=== PATIENT | male | born 1960 | race Caucasian/White ===

== ENCOUNTER 2017-11-14 00:21 | Inpatient (IN) | END 2017-11-15 16:22 | disposition home or self-care (01) | DRG 151 ==

== ENCOUNTER 2018-11-16 12:13 | Inpatient (IN) | payer OTHER ==
[~2018-11-16] VITALS: Ht 172.9 cm; Wt 72.0 kg
[~2018-11-16 12:13] MED LIST: AMLO-147 PO; ASPI-831 PO; ATOR-2 PO; CLON-379 PO; LEVO-86 PO; LOSA50TA14 PO
[2018-11-16] MEDS ORDERED: SOD CHLORIDE 0.9% 1,000 ML IV STA (12:55)
--- NOTE | 2018-11-16 13:12 | ERD ---
ER Documentation Chief Complaint Chief Complaint BIB RA FOR EVAL OF ALOC SINCE 1 AM TODAY HPI 58-year-old male brought in by ambulance for altered mental status. He is accompanied by his girlfriend at bedside. She states that last night he went to bed at 9 PM and was acting normally at that time. He woke up around 1 AM today and seemed confused and had balance issues. He was walking to the bathroom with an unsteady gait. He then went to sleep again. When he woke up around 7 AM, he was a little better but still unable to speak normally and had an episode of vomiting. He went back to sleep. He refused to come to the hospital despite her insistence. When he woke up again from his sleep prior to arrival, ambulance was called as he was still acting abnormally. Patient does have a history of CAD with last stent placement in April 2018. He has also had multiple strokes in the past. He is very resistant about going to the hospital or to the doctor. He currently does have high-grade blockage in 1 of his coronary arteries but has not had this taking care of. For the past few days he has not been feeling well with some abdominal pain and flank pain. He has had intermittent diaphoresis but no complaints of chest pain or shortness of breath. Patient is stating that he is in pain but is unable to tell me where his pain is. Otherwise he is unable to answer any questions. ROS Unable to obtain as the patient is altered and not answering questions appropriately. Medications Home Meds Reported Medications Levothyroxine Sodium* (Levothyroxine Sodium*) 150 Mcg Tablet, 150 MCG PO BEFORE BREAKFAST, #30 TAB 11/16/18 Ticagrelor* (Brilinta*) 90 Mg Tablet, 90 MG PO Q12, TAB 11/16/18 Amlodipine Besylate* (Amlodipine Besylate*) 10 Mg Tablet, 10 MG PO DAILY, #30 TAB 11/16/18 Atorvastatin* (Atorvastatin*) 80 Mg Tablet, 80 MG PO HS, TAB 07/05/15 Discontinued Scripts Aspirin (Aspirin) 81 Mg Chew, 81 MG PO DAILY, #30 TAB Prov:MALCOLM LIND 11/15/17 Amlodipine Besylate* (Amlodipine Besylate*) 10 Mg Tablet, 10 MG PO HS, #30 TAB Prov:MALCOLM LIND 11/15/17 Levothyroxine Sodium* (Synthroid*) 100 Mcg Tablet, 100 MCG PO BEFORE BREAKFAST, #30 TAB Prov:MALCOLM LIND 11/15/17 Losartan Potassium* (Losartan Potassium*) 50 Mg Tablet, 50 MG PO DAILY, #30 TAB Prov:MALCOLM LIND 11/15/17 Clonidine Hcl* (Clonidine Hcl*) 0.1 Mg Tab, 0.1 MG PO Q4 PRN for ELEVATED BLOOD PRESSURE, #30 TAB for systolic blood pressure greater than 160 Prov:MALCOLM LIND 11/15/17 Allergies Allergies: Coded Allergies: No Known Allergy (Verified , 11/16/18) PMhx/Soc History of Surgery: Yes Anesthesia Reaction: No Hx Neurological Disorder: Yes (Multiple CVAs) Hx Respiratory Disorders: No Hx Cardiac Disorders: Yes (CAD, hypertension) Hx Psychiatric Problems: No Hx Miscellaneous Medical Probl: Yes (Hypothyroidism) Hx Alcohol Use: No Hx Substance Use: No Hx Tobacco Use: No Smoking Status: Current every day smoker FmHx Unable to obtain Physical Exam Vitals Vital Signs Date Temp Pulse Resp B/P (MAP) Pulse Ox O2 O2 Flow FiO2 Time Delivery Rate 11/16/18 99.0 88 18 138/81 98 Room Air 14:36 (100) 11/16/18 99.4 95 17 138/89 99 Room Air 13:26 (105) 11/16/18 99.4 112 17 142/101 99 12:30 (115) Physical Exam INITIAL VITAL SIGNS: Reviewed by me GENERAL: Patient is lying on [place] HEAD: Normocephalic EYES: EOMI. PERRL. No icterus. No pallor. Lids, lashes, and conjunctiva clear. ENT: Mucous membranes dry, no erythema or tonsillar exudates. Airway patent. NECK: Supple. No masses. Full range of motion. No meningismus. No lymphadenopathy RESPIRATORY: Clear to auscultation bilaterally. No wheezing, No rales, No rhonc hi. No accessory muscle use. No retractions. CV: Regular rate and rhythm. No murmurs, No rubs or gallops. ABDOMEN: Soft, non-distended, non-tender. No guarding. No rebound. No pulsatile mass. Bowel sounds normal. BACK: Non-tender. EXTREMITIES: No edema. No clubbing or cyanosis. Pulses symmetric. No deficits or delays. Calves non-tender. No cords. SKIN: Warm and dry. Decreased turgor. No obvious rash, petechiae or purpura. NEUROLOGIC: Awake and alert. No obvious facial asymmetry. Abnormal speech content. Follows some commands. Moves all extremities equally. Strength possibly slightly diminished in RUE. No focal deficits. Result Diagram: 11/17/18 0437 11/17/18 0441 Results 24 hrs Laboratory Tests Test 11/16/18 13:30 11/16/18 13:32 POC Venous Lactate 1.8 mmol/L White Blood Count 16.8 10^3/ul Red Blood Count 5.03 10^6/ul Hemoglobin 15.2 g/dl Hematocrit 45.2 % Mean Corpuscular Volume 89.9 fl Mean Corpuscular Hemoglobin 30.2 pg Mean Corpuscular Hemoglobin Concent 33.6 g/dl Red Cell Distribution Width 12.9 % Platelet Count 341 10^3/UL Mean Platelet Volume 9.2 fl Immature Granulocytes % 0.700 % Neutrophils % 76.1 % Lymphocytes % 14.6 % Monocytes % 7.4 % Eosinophils % 0.8 % Basophils % 0.4 % Nucleated Red Blood Cells % 0.0 /100WBC Immature Granulocytes # 0.110 10^3/ul Neutrophils # 12.8 10^3/ul Lymphocytes # 2.5 10^3/ul Monocytes # 1.3 10^3/ul Eosinophils # 0.1 10^3/ul Basophils # 0.1 10^3/ul Nucleated Red Blood Cells # 0.0 10^3/ul Erythrocyte Sedimentation Rate 109 mm/Hr Prothrombin Time 12.4 Sec Prothrombin Time Ratio 1.0 INR International Normalized Ratio 0.91 Activated Partial Thromboplast Time 24.5 Sec Sodium Level 141 mmol/L Potassium Level 3.5 mmol/L Chloride Level 102 mmol/L Carbon Dioxide Level 29 mmol/L Anion Gap 10 Blood Urea Nitrogen 12 mg/dl Creatinine 1.11 mg/dl Est Glomerular Filtrat Rate mL/min > 60 mL/min Glucose Level 119 mg/dl Hemoglobin A1c 5.5 % Calcium Level 9.7 mg/dl Total Bilirubin 0.6 mg/dl Direct Bilirubin 0.00 mg/dl Indirect Bilirubin 0.6 mg/dl Aspartate Amino Transf (AST/SGOT) 29 IU/L Alanine Aminotransferase (ALT/SGPT) 12 IU/L Alkaline Phosphatase 79 IU/L Creatine Kinase 42 IU/L Creatine Kinase Index 0.5 Creatinine Kinase MB (Mass) < 0.22 ng/ml Troponin I 0.022 ng/ml Total Protein 8.2 g/dl Albumin 4.0 g/dl Globulin 4.20 g/dl Albumin/Globulin Ratio 0.95 Triglycerides Level 143 mg/dl Cholesterol Level 197 mg/dl LDL Cholesterol, Calculated 129 mg/dl HDL Cholesterol 39 mg/dl Cholesterol/HDL Ratio 5.0 RATIO Free Thyroxine 1.64 ng/dl Ethyl Alcohol Level < 10.0 mg/dl Current Medications Medications Dose Sig/D[place]ton Start Time Status Last (Trade) Ordered Route PRN Stop Time Admin Dose Reason Admin Sodium 1,000 ml @ Q1H STAT 11/16/18 DC 11/16/18 Chloride 1,000 mls/hr IV 12:55 13:33 11/16/18 13:54 IV Flush 10 ml STK-MED 11/16/18 DC (NS 10 ml) ONCE .ROUTE 13:51 11/16/18 13:52 Sodium 100 ml @ ud STK-MED 11/16/18 DC Chloride ONCE .ROUTE 13:51 11/16/18 13:52 Iodixanol 100 ml STK-MED 11/16/18 DC (Visipaque ONCE .ROUTE 13:51 Locm) 11/16/18 13:52 IV Flush 3 ml PER 11/16/18 (NS 3 ml) PROTOCOL IV 14:30 Ondansetron 4 mg Q6H PRN 11/16/18 HCl (Zofran IV 14:30 Inj) NAUSEA/VOMITI NG 650 mg Q6H PRN 11/16/18 11/16/18 Acetaminophen PO .PAIN 1-3 14:30 16:33 (Tylenol OR TEMP Tab) 1 tab Q6H PRN 11/16/18 Acetaminophen PO .MOD PAIN 14:30 / 4-6 Hydrocodone Bitart ([place] (5/325)) Morphine 2 mg Q4H PRN 11/16/18 11/17/18 Sulfate IV .SEVERE 14:30 02:56 (morphine) PAIN 7-10 Docusate 100 mg Q12H PRN 11/16/18 Sodium PO 14:30 (Colace) .CONSTIPATION Magnesium 30 ml DAILY PRN 11/16/18 Hydroxide PO 14:30 (Milk Of Mag) .CONSTIPATION Sodium 1,000 ml @ [id number] IV 11/16/18 11/17/18 Chloride 75 mls/hr 14:25 01:54 Lorazepam 0.5 mg Q6H PRN 11/16/18 DC 11/16/18 (Ativan) IV ANXIETY 14:30 23:45 11/17/18 01:00 Albuterol/ 3 ml Q4H RESP 11/16/18 Ipratropium THERAPY PRN 14:30 (Duoneb) HHN SHORTNESS OF BREATH Hydralazine 10 mg Q6H PRN 11/16/18 HCl IV ELEVATED 14:30 (Apresoline) BLOOD PRESSURE 1 tab Q5M PRN 11/16/18 Nitroglycerin SL ANGINA 14:30 (Nitroglyceri n (Sl Tab) 0.4 Mg) Procedures/MDM EMERGENT LABS AND DIAGNOSTIC STUDIES: Lab Results above were reviewed and interpreted by me. CBC: Leukocytosis, concerning for possible infection CMP: No evidence of electrolyte abnormality, renal failure, hypoglycemia, liver failure, or biliary obstruction Troponin within normal limits, not indicative of cardiac ischemia Lactate within normal limits without evidence of sepsis or tissue hypoperfusion UA:pending ETOH negative UDS pending 12-lead EKG was interpreted by Chelsey Nation MD: Normal sinus rhythm at 100 bpm Normal axis Normal intervals T wave flattening in the inferior and lateral leads. No acute ST or T wave changes suggestive of acute ischemia or STEMI. Radiology Results as interpreted by Radiology below were reviewed by Sedrick Nation MD: Chest x-ray: no acute abnormalities CT Brain: IMPRESSION: 1. New area of low attenuation with loss of strange-white matter differentiation left posterior parietal lobe consistent with an acute area of infarction. Consider further evaluation with MRI.. 2. Old right occipital infarct with encephalomalacia. 3. No intracranial hemorrhage. 4. Moderate small vessel ischemic change in periventricular white matter and zaragoza radiata. 5. Dolichoectasia left vertebral artery CTA Brain/Neck: IMPRESSION: 1. Abrupt cutoff for termination of the left distal M2 and M3 segment of the left middle cerebral artery compatible with acute infarct. 2. Right distal common carotid artery and internal carotid artery origin soft atherosclerotic plaque with approximately 35% stenosis of the right internal carotid artery origin over a 2.2 cm length. 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 Mild interval irregularity of the left distal vertebral artery with dilatation extending into the basilar artery and correlate with fibroid minimal muscular dysplasia. 4. No evidence for focal aneurysms or arterial venous malformation 5. Acute left temporal and parietal lobe ischemic infarct without evidence for a bnormal enhancement 6. Chronic right occipital lobe infarct. Initial Nursing notes reviewed. Previous Medical Records requested via the Electronic Health Record. EMERGENCY DEPARTMENT COURSE / MEDICAL DECISION MAKING: PROCEDURES: none LAB INTERPRETATION: Only notable for leukocytosis MEDICAL DECISION MAKING: Patient presented initially with altered mental status and no slurred speech but had difficulty expressing what he was feeling. He was following commands on my exam initially. He was noted to be a little tachycardic and tachypneic. There is no history of possible source of infection. After my evaluation, multiple s tudies were ordered, including a CT head. I received a call from the radiologist stating that the patient recently had an acute left-sided infarct, likely involving Broca's area, which is probably why he has expressive aphasia. At this time, code stroke was activated. CTA was ordered. I spoke with the tele-neurologist on-call, , who states that since the patient's last known well was 9 PM last night and he has evidence of stroke changes on CT already, he does not meet criteria for TPA or endovascular intervention. She recommended admission for further stroke workup and MRI of the brain. Patient was maintaining his airway with no signs of impending respiratory failure while in the ED awaiting admission. Neuro Critical Care: Time: 60 minutes Treatments/Evaluations: Continuous neurologic and cardiovascular monitoring for deterioration of neurologic function and complications, while obtaining immediate neurologic imaging. Considerations made for TPA and invasive therapy with discussions with family. TPA Criteria Assessment: Patient is not a TPA candidate because: Last known normal > [address] shows > 1/3 MCA territory involvement Accepting Care Team: Current data and ongoing care discussed. Time: Time of admission Primary Provider: [XOXOXO] Consulting: [XOXOXO] Outstanding Data: none Departure Diagnosis: Primary Impression: Left middle cerebral artery stroke Additional Impression: Acute encephalopathy Condition: Critical GREGORY NATION MD Nov 16, 2018 13:12
[2018-11-16] MEDS ORDERED: AMLO-147 PO (13:28)
[2018-11-16] MEDS ORDERED: TICA90TA PO (13:29)
[2018-11-16] MEDS ORDERED: LEVO150T7 PO (13:29)
[2018-11-16] MEDS ORDERED: IODIXANOL LOCM 100 ML BTL ONE (13:51)
[2018-11-16] MEDS ORDERED: SOD CHLORIDE 0.9% 100 ML ONE (13:51)
[2018-11-16] MEDS: SOD CHLORIDE 0.45% 1,000 ML IV SCH (14:25)
[2018-11-16] MEDS ORDERED: NITROGLYCERIN (SL) 0.4 MG TAB SL PRN (14:30)
[2018-11-16] MEDS ORDERED: ONDANSETRON 4 MG INJ IV PRN (14:30)
[2018-11-16] MEDS ORDERED: NACL 0.9% 3 ML SYG IV SCH (14:30)
[2018-11-16] MEDS ORDERED: ALBUTEROL/IPRATROPIUM (NEB) 3 ML AMP HHN PRN (14:30)
[2018-11-16] MEDS ORDERED: ACETAMINOPHEN 325 MG TAB PO PRN (14:30)
[2018-11-16] MEDS ORDERED: DOCUSATE SODIUM 100 MG CAP PO PRN (14:30)
[2018-11-16] MEDS ORDERED: hydrALAzine 20 MG INJ IV PRN (14:30)
[2018-11-16] MEDS ORDERED: MAGNESIUM HYDROXIDE 30ML CUP PO PRN (14:30)
[2018-11-16] MEDS ORDERED: HYDROCODONE/APAP (5/325) TAB PO PRN (14:30)
--- NOTE | 2018-11-16 14:43 | CONS ---
Assessment/Plan Assessment/Plan Hospital Course A: 58 yo M with hx of CVA, HTN, CAD and other comorbidities who presents for evaluation of ams, slurred speech, gait instability. CTH was notable for an acute L posterior parietal infarct. CTA H/N is most notable for an acute L temporoparietal infarct as well as occlusion of the M2/M3 branches of the L MCA P: Await MRI brain for further characterization Await echo, CUS, UA, UDS Add ESR, RPR Agree with ASA/Lipitor for secondary stroke prevention Permissive HTN (up to 220/110) through tomorrow PT/OT/ST as necessary Cont medical management per primary Will follow clinically Consultation Date/Type/Reason Admit Date/Time Type of Consult Neurology Reason for Consultation acute cva Requesting Provider: ALEX HA Date/Time of Note DATE: 11/16/18 TIME: 14:43 Hx of Present Illness 58 yo M with hx of CVA, HTN, CAD and other comorbidities who presented to the ED for evaluation of ams, slurred speech and gait instability. History was obtained from girlfriend at bedside and chart review as pt refused to participate. It is elsewhere noted: HPI 58-year-old male brought in by ambulance for altered mental status. He is accom panied by his girlfriend at bedside. She states that last night he went to bed at 9 PM and was acting normally at that time. He woke up around 1 AM today and seemed confused and had balance issues. He was walking to the bathroom with an unsteady gait. He then went to sleep again. When he woke up around 7 AM, he was a little better but still unable to speak normally and had an episode of vomiting. He went back to sleep. He refused to come to the hospital despite her insistence. When he woke up again from his sleep prior to arrival, ambulance was called as he was still acting abnormally. Patient does have a history of CAD with last stent placement in April 2018. He has also had multi ple strokes in the past. He is very resistant about going to the hospital or to the doctor. He currently does have high-grade blockage in 1 of his coronary arteries but has not had this taking care of. For the past few days he has not been feeling well with some abdominal pain and flank pain. He has had intermittent diaphoresis but no complaints of chest pain or shortness of breath. Patient is stating that he is in pain but is unable to tell me where his pain is. Otherwise he is unable to answer any questions. unable to obtain at this time. Subjective hx not possible: other (pt unwilling to contribute at this time) Exam/Review of Systems Exam Vitals Vital Signs Date Temp Pulse Resp B/P (MAP) Pulse Ox O2 O2 Flow FiO2 Time Delivery Rate 11/16/18 99.0 88 18 138/81 98 Room Air 14:36 (100) Exam PE: Gen Appearance: agitated HEENT: Normocephalic Cardiovascular: Regular rate Lungs: Clear bilaterally Abdomen: Soft Extremities: Dry NE: (The pt was agitated and uncooperative with most aspects of the exam. Will fully reassess when able.) The patient was alert. Speech slightly dysarthric. Comprehension impaired. Very difficult to direct/redirect. Fund of knowledge was unable to be assessed. Did not follow commands. Cranial nerve examination was limited by mental status. Pupils were equal and reactive to light. There was no afferent pupillary defect. Funduscopic examination was limited. Face was grossly symmetric, w/ present corneal and cough reflexes. Tone was normal. Muscle bulk was normal. I did not see fasciculations. The pt had spontaneous movement of all extremities. Coordination and gait testing was limited by mental status. Arm and leg reflexes were within normal limits and symmetric. Dhillon's sign was absent. Plantar responses were flexor. Results Result Diagram: 11/16/18 1332 11/16/18 1332 Results 24hrs Laboratory Tests Test 11/16/18 13:30 11/16/18 13:32 POC Venous Lactate 1.8 White Blood Count 16.8 #H Red Blood Count 5.03 Hemoglobin 15.2 Hematocrit 45.2 Mean Corpuscular Volume 89.9 Mean Corpuscular Hemoglobin 30.2 Mean Corpuscular Hemoglobin Concent 33.6 Red Cell Distribution Width 12.9 Platelet Count 341 # Mean Platelet Volume 9.2 Immature Granulocytes % 0.700 H Neutrophils % 76.1 Lymphocytes % 14.6 L Monocytes % 7.4 Eosinophils % 0.8 Basophils % 0.4 Nucleated Red Blood Cells % 0.0 Immature Granulocytes # 0.110 H Neutrophils # 12.8 H Lymphocytes # 2.5 Monocytes # 1.3 H Eosinophils # 0.1 Basophils # 0.1 Nucleated Red Blood Cells # 0.0 Prothrombin Time 12.4 Prothrombin Time Ratio 1.0 INR International Normalized Ratio 0.91 Activated Partial Thromboplast Time 24.5 Sodium Level 141 Potassium Level 3.5 Chloride Level 102 Carbon Dioxide Level 29 Anion Gap 10 Blood Urea Nitrogen 12 Creatinine 1.11 Est Glomerular Filtrat Rate mL/min > 60 Glucose Level 119 Hemoglobin A1c 5.5 Calcium Level 9.7 Total Bilirubin 0.6 Direct Bilirubin 0.00 Indirect Bilirubin 0.6 Aspartate Amino Transf (AST/SGOT) 29 Alanine Aminotransferase (ALT/SGPT) 12 L Alkaline Phosphatase 79 Creatine Kinase 42 Creatine Kinase Index 0.5 Creatinine Kinase MB (Mass) < 0.22 Troponin I 0.022 Total Protein 8.2 H Albumin 4.0 Globulin 4.20 H Albumin/Globulin Ratio 0.95 Triglycerides Level 143 Cholesterol Level 197 LDL Cholesterol, Calculated 129 HDL Cholesterol 39 Cholesterol/HDL Ratio 5.0 Ethyl Alcohol Level < 10.0 H Medications Medication Current Medications IV Flush (NS 3 ml) 3 ml PER PROTOCOL IV ; Start 11/16/18 at 14:30; Status UNV Ondansetron HCl (Zofran Inj) 4 mg Q6H PRN IV NAUSEA/VOMITING; Start 11/16/18 at 14:30; Status UNV Acetaminophen (Tylenol Tab) 650 mg Q6H PRN PO .PAIN 1-3 OR TEMP; Start 11/16/18 at 14:30; Status UNV Acetaminophen/ Hydrocodone Bitart ([place] (5/325)) 1 tab Q6H PRN PO .MOD PAIN 4- 6; Start 11/16/18 at 14:30; Status UNV Morphine Sulfate (morphine) 2 mg Q4H PRN IV .SEVERE PAIN 7-10; Start 11/16/18 at 14:30; Status UNV Docusate Sodium (Colace) 100 mg Q12H PRN PO .CONSTIPATION; Start 11/16/18 at 14:30; Status UNV Magnesium Hydroxide (Milk Of Mag) 30 ml DAILY PRN PO .CONSTIPATION; Start 11/16/18 at 14:30; Status UNV Pantoprazole (Protonix Tab) 40 mg DAILY@06 PO ; Start 11/17/18 at 06:00; Status UNV Sodium Chloride 1,000 ml @ 75 mls/hr [id number] IV ; Start 11/16/18 at 14:25; Status UNV Lorazepam (Ativan) 0.5 mg Q6H PRN IV ANXIETY; Start 11/16/18 at 14:30; Status UNV Albuterol/ Ipratropium (Duoneb) 3 ml Q4H RESP THERAPY PRN HHN SHORTNESS OF BREATH; Start 11/16/18 at 14:30; Status UNV Hydralazine HCl (Apresoline) 10 mg Q6H PRN IV ELEVATED BLOOD PRESSURE; Start 11/16/18 at 14:30; Status UNV Nitroglycerin (Nitroglycerin (Sl Tab) 0.4 Mg) 1 tab Q5M PRN SL ANGINA; Start 11/16/18 at 14:30; Status UNV Aspirin (Ecotrin) 325 mg DAILY PO ; Start 11/17/18 at 09:00; Status UNV Atorvastatin Calcium (Lipitor) 80 mg HS PO ; Start 11/16/18 at 21:00; Status UNV Levothyroxine Sodium (Synthroid) 150 mcg BEFORE BREAKFAST PO ; Start 11/17/18 at 07:00; Status UNV Ticagrelor (Brilinta) 90 mg Q12 PO ; Start 11/16/18 at 21:00; Status UNV Past Medical History reviewed Home Meds Reported Medications Levothyroxine Sodium* (Levothyroxine Sodium*) 150 Mcg Tablet, 150 MCG PO BEFORE BREAKFAST, #30 TAB 11/16/18 Ticagrelor* (Brilinta*) 90 Mg Tablet, 90 MG PO Q12, TAB 11/16/18 Amlodipine Besylate* (Amlodipine Besylate*) 10 Mg Tablet, 10 MG PO DAILY, #30 TAB 11/16/18 Atorvastatin* (Atorvastatin*) 80 Mg Tablet, 80 MG PO HS, TAB 07/05/15 Discontinued Scripts Aspirin (Aspirin) 81 Mg Chew, 81 MG PO DAILY, #30 TAB Prov:REGMALCOLM PARHAM 11/15/17 Amlodipine Besylate* (Amlodipine Besylate*) 10 Mg Tablet, 10 MG PO HS, #30 TAB Prov:REGIDORMALCOLM 11/15/17 Levothyroxine Sodium* (Synthroid*) 100 Mcg Tablet, 100 MCG PO BEFORE BREAKFAST, #30 TAB Prov:REGIDOMALCOLM John 11/15/17 Losartan Potassium* (Losartan Potassium*) 50 Mg Tablet, 50 MG PO DAILY, #30 TAB Prov:MALCOLM LIND 11/15/17 Clonidine Hcl* (Clonidine Hcl*) 0.1 Mg Tab, 0.1 MG PO Q4 PRN for ELEVATED BLOOD PRESSURE, #30 TAB for systolic blood pressure greater than 160 Prov:MALCOLM LIND 11/15/17 Medications Current Medications IV Flush (NS 3 ml) 3 ml PER PROTOCOL IV ; Start 11/16/18 at 14:30; Status UNV Ondansetron HCl (Zofran Inj) 4 mg Q6H PRN IV NAUSEA/VOMITING; Start 11/16/18 at 14:30; Status UNV Acetaminophen (Tylenol Tab) 650 mg Q6H PRN PO .PAIN 1-3 OR TEMP; Start 11/16/18 at 14:30; Status UNV Acetaminophen/ Hydrocodone Bitart ([place] (5/325)) 1 tab Q6H PRN PO .MOD PAIN 4- 6; Start 11/16/18 at 14:30; Status UNV Morphine Sulfate (morphine) 2 mg Q4H PRN IV .SEVERE PAIN 7-10; Start 11/16/18 at 14:30; Status UNV Docusate Sodium (Colace) 100 mg Q12H PRN PO .CONSTIPATION; Start 11/16/18 at 14:30; Status UNV Magnesium Hydroxide (Milk Of Mag) 30 ml DAILY PRN PO .CONSTIPATION; Start 11/16/18 at 14:30; Status UNV Pantoprazole (Protonix Tab) 40 mg DAILY@06 PO ; Start 11/17/18 at 06:00; Status UNV Sodium Chloride 1,000 ml @ 75 mls/hr [id number] IV ; Start 11/16/18 at 14:25; Status UNV Lorazepam (Ativan) 0.5 mg Q6H PRN IV ANXIETY; Start 11/16/18 at 14:30; Status UNV Albuterol/ Ipratropium (Duoneb) 3 ml Q4H RESP THERAPY PRN HHN SHORTNESS OF BREATH; Start 11/16/18 at 14:30; Status UNV Hydralazine HCl (Apresoline) 10 mg Q6H PRN IV ELEVATED BLOOD PRESSURE; Start 11/16/18 at 14:30; Status UNV Nitroglycerin (Nitroglycerin (Sl Tab) 0.4 Mg) 1 tab Q5M PRN SL ANGINA; Start 11/16/18 at 14:30; Status UNV Aspirin (Ecotrin) 325 mg DAILY PO ; Start 11/17/18 at 09:00; Status UNV Atorvastatin Calcium (Lipitor) 80 mg HS PO ; Start 11/16/18 at 21:00; Status UNV Levothyroxine Sodium (Synthroid) 150 mcg BEFORE BREAKFAST PO ; Start 11/17/18 at 07:00; Status UNV Ticagrelor (Brilinta) 90 mg Q12 PO ; Start 11/16/18 at 21:00; Status UNV Allergies: Coded Allergies: No Known Allergy (Verified , 11/16/18) Past Surgical History reviewed Social History reviewed Smoking Status: Current every day smoker VETO KARIMI NP Nov 16, 2018 14:43
[2018-11-16] MEDS: LORAZEPAM 2 MG INJ IV PRN ×2 (16:50→23:45)
--- NOTE | 2018-11-16 16:57 | HP ---
DATE OF ADMISSION: 11/16/2018 CHIEF COMPLAINT: Altered level of consciousness since early this morning and difficulty speaking. HISTORY OF PRESENT ILLNESS: A 58-year-old male with past medical history based on records of [place] in 2 009 with total of 7 cardiac stents, prior stroke, high cholesterol, hypertension, likely extensive sm oking history, who was brought in for altered mental status. Most of the information is obtained fro m ER documentation and speaking with the patient's girlfriend as the patient is presently at MRI, get ting a head scan. Apparently, the patient went to bed around 9:00 p.m. last night. Per significant other, had mild confusion, but allows acting normally. Apparently, he woke up around 1:00 a.m. and s eemed more confused and had some difficulty walking. He went back to sleep and woke up again around 7:00 a.m. and continued to have some confusion and also difficulty speaking at this time. He had an episode of vomiting as well. He had some mild shortness of breath, but no chest pain. No fevers or chills. No upper or lower GI bleeding. No diarrhea or constipation. No nausea. Significant other convince the patient to come to the ER. Today when he came in, he had a head CT performed that showe d new area of low attenuation with loss of strange white matter differentiation in the left posterior pa rietal lobe consistent with acute area of infarction. Also, there was an old right occipital infarct with encephalomalacia found. The patient underwent CTA of the head and neck that shows abrupt cutof f for termination of left distal M2 and M3 segment of the left middle cerebral artery compatible with acute infarct. There is also acute left temporal and parietal lobe ischemic infarcts. No evidence of abnormal enhancement, however. No evidence of any aneurysms or AV malformations. This was a righ t common carotid artery and internal carotid artery origin, atherosclerotic plaque, 35% stenosis righ t internal carotid artery. 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 A call was been made out from the neurology team, who is coming to evaluate the patient now, and code s troke was initiated as well in the ER, but the patient appeared to be outside of the tPA window. Of note, per records, the patient apparently had his last cardiac stent placement in 04/2018. Also, has had multiple strokes in the past and apparently has currently does have high grade I blockage of one of his coronary arteries, but has not had this taken care of apparently. PAST MEDICAL HISTORY: As above. ALLERGIES: NO KNOWN DRUG ALLERGIES. HOME MEDICATIONS: Brilinta 90 mg q.12 hours, amlodipine 10 mg daily, atorvastatin 80 mg at bedtime, levothyroxine 150 mcg every morning. PAST SURGICAL HISTORY: Again, 7 cardiac stents placed in the past. FAMILY HISTORY: His father had heart problems, unclear specifically, and his mother may have had a h eart attack in the past, but is unclear. SOCIAL HISTORY: The patient's significant other denied any smoking history; however, looking back at the records, the patient in the past has been noted to have a [id number] smoking history. Denies any IV drug abuse or alcohol use. PHYSICAL EXAMINATION: VITAL SIGNS: Today, T-max 99.4, pulse 80 to 112, respirations 17, blood pressure 138/89, satting at 99% on room air. GENERAL: The patient is lying in the bed, no acute distress. HEENT: Pupils equal, round, react to light. Extraocular muscles intact. NECK: Supple, no thyromegaly. LUNGS: Clear to auscultation bilaterally. CARDIOVASCULAR: S1, S2 heard. No rubs or gallops. ABDOMEN: Soft, nontender, nondistended. Normal bowel sounds. No rebound or guarding. MUSCULOSKELETAL: No lower extremity edema bilaterally. NEUROLOGIC: Moves upper and lower extremities without any difficulty. Speech appears to be more coh erent now. No other focal deficits. LABORATORIES: WBC 16.8. The rest of his CBC is normal. Comprehensive metabolic panel is normal. T roponin is negative x1. Cholesterol panel was normal. TSH is normal. Blood alcohol level shows les s than 10. Coags appear to be normal. We mentioned the imaging study findings of the brain and the neck. There is also a chest x-ray performed that shows no evidence of any acute cardiopulmonary dise ase. ASSESSMENT AND PLAN: A 58-year-old male with history of significant coronary artery disease with 7 c ardiac stents, prior strokes, [place] 2008, high cholesterol, hypertension, likely positive smoking histor y, who comes in with altered mental status and difficulty speaking with signs of acute left posterior parietal and temporoparietal infarcts. 1. Altered mental status and difficulty speaking. Again, likely secondary to a left posterior parie shar infarct and left temporoparietal infarct, both acute, so that the patient allow for permissive hy pertension at this time. Get PT, OT and speech therapy consult. Check TSH, A1c, lipid panel. We wi ll also put him on high dose aspirin and statin. Get echocardiogram, carotid Doppler study and MRI o f the brain for further assessment. Will get a neurology consult. Follow up their recommendations, do neuro checks every 4 hours. 2. History of coronary artery disease with stents. For now, continue his Brilinta. He will be on h igh dose aspirin as well. 3. Possible history of hypothyroidism. Follow up for thyroid panel. Continue Synthroid. 4. History of high cholesterol. Again, he is on Lipitor for the stroke, but also for high cholester ol at home. Continue that for now. 5. Hypertension. Again, allowing for permissive hypertension for at least the first 24 hours, so ot her than hydralazine IV p.r.n., we will hold his other home blood pressure medicines for now. 6. Deep venous thrombosis prophylaxis. Again, he is Brilinta and SCDs. 7. GI prophylaxis. For now, he is on PPI. Dictated By: ALEX NAIK/HAKEEM Conf#: [id number] DID#: [id number] CC: RAMON LARSON; GREGORY SCOTT MD;*End*
--- NOTE | 2018-11-16 18:24 | QN ---
Documentation Comment Teleneurology Telephone Note 58yo M last well 9pm, with left posterior parietal acute CVA on CT, with speech difficulty and ataxia noted at 1am and refused to come to ED. I agreed the patient is not a TPA candidate due to being outside the time window, and not a neurointerventional candidate given changes seen on CT. No further consultation is requested. JAZMIN DENSON Nov 16, 2018 18:22
[2018-11-16] MEDS ORDERED: HALOPERIDOL 5 MG INJ IM ONE (20:30)
[2018-11-16] MEDS: TICAGRELOR 90 MG TABLET PO SCH (21:28)
[2018-11-16] MEDS: ATORVASTATIN 80 MG TAB PO SCH (21:28)
[2018-11-16] MEDS ORDERED: LORAZEPAM 2 MG INJ IV ONE (21:30)
[2018-11-16 22:48] VITALS: PULSE 135
[2018-11-16] MEDS: morphine 2 MG INJ IV PRN (22:48)
[2018-11-16 23:00] VITALS: BP 150/105; PULSE 111; RESP 24
[2018-11-16 23:30] VITALS: Ht 172.9 cm; Wt 72.0 kg
[2018-11-17] VITALS (22 sets, daily range): BP systolic 99–151; BP diastolic 62–106; PULSE 102–127; RESP 12–36
[2018-11-17] MEDS ORDERED: DIPHENHYDRAMINE 50 MG INJ IV ONE ×2 (01:00→01:30)
[2018-11-17] MEDS: SOD CHLORIDE 0.45% 1,000 ML IV SCH ×2 (01:54→18:25)
[2018-11-17] MEDS ORDERED: LORAZEPAM 2 MG INJ IV PRN (02:30)
[2018-11-17] MEDS: morphine 2 MG INJ IV PRN (02:56)
[2018-11-17] MEDS ORDERED: MAGNESIUM SULFATE 2 GM/50 ML 50 ML IVPB ONE (06:00)
[2018-11-17] MEDS: PANTOPRAZOLE (EC) 40 MG TAB PO SCH (06:18)
[2018-11-17] MEDS: POTASSIUM CHLORIDE 100 ML IVPB SCH ×4 (08:30→17:13)
[2018-11-17] MEDS ORDERED: NICOTINE (7 MG/24 HR) PATCH TRANSDERM SCH (09:00)
[2018-11-17] MEDS: ASPIRIN (EC) 325 MG TAB PO SCH (09:19)
[2018-11-17] MEDS: LEVOTHYROXINE 150 MCG TAB PO SCH (09:26)
[2018-11-17] MEDS: NICOTINE (14 MG/24 HR) PATCH TRANSDERM SCH (09:27)
[2018-11-17] MEDS: TICAGRELOR 90 MG TABLET PO SCH ×2 (09:27→21:17)
--- NOTE | 2018-11-17 10:30 | PN ---
Date/Time of Note Date/Time of Note DATE: 11/17/18 TIME: 10:21 Assessment/Plan VTE Prophylaxis SCD applied (from Nsg): Yes Pharmacological prophylaxis: other (Brilinta) Lines/Catheters IV Catheter Type (from Nrs): Saline Lock Assessment/Plan Hospital Course S: Patient seen by neurology team yesterday. Had some agitation overnight which required restraints. Presently more calm, working with occupational therapy presently. Head CT and MRI brain results noted for acute stroke. O: VS-see below PHYSICAL EXAMINATION: GENERAL: Sitting on edge of bed, working with OT, no present acute distress. HEENT: Pupils equal, round, react to light. Extraocular muscles intact. NECK: Supple, no thyromegaly. LUNGS: Clear to auscultation bilaterally. CARDIOVASCULAR: S1, S2 heard. No rubs or gallops. ABDOMEN: Soft, nontender, nondistended. Normal bowel sounds. No rebound or guarding. MUSCULOSKELETAL: No lower extremity edema bilaterally. NEUROLOGIC: Moves upper and lower extremities, but with difficulty speaking MRI brain: IMPRESSION: 1. Acute/recent infarcts involving posterior left parietal lobe and insula and left occipital parietal region as well as a smaller focus in the posterior left frontal lobe. 2. Old right medial occipital lobe infarct with associated hemosiderin. 3. Small old lacunar infarcts are noted in left thalamus and right paramedian maria g. 4. Moderate chronic small vessel ischemic changes. 5. Mild generalized cerebral volume loss. ASSESSMENT AND PLAN: 58-year-old male with history of significant coronary artery disease with 7 cardiac stents, prior strokes, [place] 2008, high cholesterol, hypertension, likely positive smoking history, who comes in with altered mental status and difficulty speaking with signs of acute left posterior parietal and temporoparietal infarcts. 1. Altered mental status and difficulty speaking- secondary to acute infarct. Patient on MRI found with acute/recent infarcts involving posterior left parietal lobe and insula and left occipital parietal region as well as a smaller focus in the posterior left frontal lobe. -Continue PT, OT and speech therapy -Continue high dose aspirin and statin. -Follow-up results of echocardiogram, and recommendations from neurology consult. -Continue neuro checks every 4 hours. -Still allowing for permissive hypertension per neurology recommendations -Replete low electrolytes 2. History of coronary artery disease with stents. - For now, continue his Brilinta,high dose aspirin as well. 3. hypothyroidism. - Follow up for thyroid panel. - Continue Synthroid. 4. History of high cholesterol- - Again, he is on Lipitor for the stroke, but also for high cholesterol at home. 5. Hypertension-stable - Again, allowing for permissive hypertension for at least the first 24 hours, so other than hydralazine IV p.r.n. systolic greater than 220, we will hold his other home blood pressure medicines for now. 6. Deep venous thrombosis prophylaxis. Again, he is Brilinta and SCDs. 7. GI prophylaxis- PPI. Critical care time spent on patient care today equals 45 minutes. Result Diagram: 11/17/18 0437 11/17/18 0441 Results 24hrs Laboratory Tests Test 11/16/18 13:30 11/16/18 13:32 11/16/18 17:16 11/16/18 21:47 POC Venous Lactate 1.8 1.2 White Blood Count 16.8 #H Red Blood Count 5.03 Hemoglobin 15.2 Hematocrit 45.2 Mean Corpuscular 89.9 Volume Mean Corpuscular 30.2 Hemoglobin Mean Corpuscular 33.6 Hemoglobin Concent Red Cell 12.9 Distribution Width Platelet Count 341 # Mean Platelet Volume 9.2 Immature 0.700 H Granulocytes % Neutrophils % 76.1 Lymphocytes % 14.6 L Monocytes % 7.4 Eosinophils % 0.8 Basophils % 0.4 Nucleated Red Blood 0.0 Cells % Immature 0.110 H Granulocytes # Neutrophils # 12.8 H Lymphocytes # 2.5 Monocytes # 1.3 H Eosinophils # 0.1 Basophils # 0.1 Nucleated Red Blood 0.0 Cells # Erythrocyte 109 H Sedimentation Rate Prothrombin Time 12.4 12.7 Prothrombin Time 1.0 1.0 Ratio INR International 0.91 0.94 Normalized Ratio Activated 24.5 33.4 Partial Thromboplast Time Sodium Level 141 Potassium Level 3.5 Chloride Level 102 Carbon Dioxide Level 29 Anion Gap 10 Blood Urea Nitrogen 12 Creatinine 1.11 Est Glomerular > 60 Filtrat Rate mL/min Glucose Level 119 Hemoglobin A1c 5.5 Calcium Level 9.7 Total Bilirubin 0.6 Direct Bilirubin 0.00 Indirect Bilirubin 0.6 Aspartate Amino 29 Transf (AST/SGOT) Alanine 12 L Aminotransferase ([place] T/SGPT) Alkaline Phosphatase 79 Creatine Kinase 42 Creatine Kinase 0.5 Index Creatinine Kinase MB < 0.22 (Mass) Troponin I 0.022 Total Protein 8.2 H Albumin 4.0 Globulin 4.20 H Albumin/Globulin 0.95 Ratio Triglycerides Level 143 Cholesterol Level 197 LDL Cholesterol, 129 Calculated HDL Cholesterol 39 Cholesterol/HDL 5.0 Ratio Free Thyroxine 1.64 Ethyl Alcohol Level < 10.0 H Test 11/16/18 21:51 11/17/18 04:37 11/17/18 04:41 Lactic Acid Level 1.9 White Blood Count 23.1 #H Red Blood Count 4.97 Hemoglobin 14.8 Hematocrit 43.5 Mean Corpuscular 87.5 Volume Mean Corpuscular 29.8 Hemoglobin Mean Corpuscular 34.0 Hemoglobin Concent Red Cell 13.0 Distribution Width Platelet Count 340 Mean Platelet Volume 9.3 Immature 0.700 H Granulocytes % Neutrophils % 78.9 H Lymphocytes % 12.8 L Monocytes % 7.3 Eosinophils % 0.0 Basophils % 0.3 Nucleated Red Blood 0.0 Cells % Immature 0.170 H Granulocytes # Neutrophils # 18.3 H Lymphocytes # 3.0 H Monocytes # 1.7 H Eosinophils # 0.0 Basophils # 0.1 Nucleated Red Blood 0.0 Cells # Sodium Level 140 Potassium Level 2.9 *L Chloride Level 99 Carbon Dioxide Level 30 Anion Gap 11 Blood Urea Nitrogen 13 Creatinine 1.15 Est Glomerular > 60 Filtrat Rate mL/min Glucose Level 137 Hemoglobin A1c 5.6 Calcium Level 9.6 Phosphorus Level 2.1 L Magnesium Level 1.6 L Triglycerides Level 131 Cholesterol Level 186 LDL Cholesterol, 125 Calculated HDL Cholesterol 35 Cholesterol/HDL 5.3 Ratio Thyroid Stimulating 2.140 Hormone (TSH) Exam/Review of Systems Exam Vitals Vital Signs Date Temp Pulse Resp B/P (MAP) Pulse Ox O2 O2 Flow FiO2 Time Delivery Rate 11/17/18 107 36 126/97 94 10:00 (107) 11/17/18 98.6 08:00 11/17/18 21 00:15 11/16/18 Room Air 23:00 11/16/18 2.0 18:00 Intake and Output 11/16/18 11/16/18 11/17/18 1414:59 22:59 06:59 OutputOutput Total 600 ml BalanceBalance -600 ml Results Results 24hrs Laboratory Tests Test 11/16/18 13:30 11/16/18 13:32 11/16/18 17:16 11/16/18 21:47 POC Venous Lactate 1.8 1.2 White Blood Count 16.8 #H Red Blood Count 5.03 Hemoglobin 15.2 Hematocrit 45.2 Mean Corpuscular 89.9 Volume Mean Corpuscular 30.2 Hemoglobin Mean Corpuscular 33.6 Hemoglobin Concent Red Cell 12.9 Distribution Width Platelet Count 341 # Mean Platelet Volume 9.2 Immature 0.700 H Granulocytes % Neutrophils % 76.1 Lymphocytes % 14.6 L Monocytes % 7.4 Eosinophils % 0.8 Basophils % 0.4 Nucleated Red Blood 0.0 Cells % Immature 0.110 H Granulocytes # Neutrophils # 12.8 H Lymphocytes # 2.5 Monocytes # 1.3 H Eosinophils # 0.1 Basophils # 0.1 Nucleated Red Blood 0.0 Cells # Erythrocyte 109 H Sedimentation Rate Prothrombin Time 12.4 12.7 Prothrombin Time 1.0 1.0 Ratio INR International 0.91 0.94 Normalized Ratio Activated 24.5 33.4 Partial Thromboplast Time Sodium Level 141 Potassium Level 3.5 Chloride Level 102 Carbon Dioxide Level 29 Anion Gap 10 Blood Urea Nitrogen 12 Creatinine 1.11 Est Glomerular > 60 Filtrat Rate mL/min Glucose Level 119 Hemoglobin A1c 5.5 Calcium Level 9.7 Total Bilirubin 0.6 Direct Bilirubin 0.00 Indirect Bilirubin 0.6 Aspartate Amino 29 Transf (AST/SGOT) Alanine 12 L Aminotransferase ([place] T/SGPT) Alkaline Phosphatase 79 Creatine Kinase 42 Creatine Kinase 0.5 Index Creatinine Kinase MB < 0.22 (Mass) Troponin I 0.022 Total Protein 8.2 H Albumin 4.0 Globulin 4.20 H Albumin/Globulin 0.95 Ratio Triglycerides Level 143 Cholesterol Level 197 LDL Cholesterol, 129 Calculated HDL Cholesterol 39 Cholesterol/HDL 5.0 Ratio Free Thyroxine 1.64 Ethyl Alcohol Level < 10.0 H Test 11/16/18 21:51 11/17/18 04:37 11/17/18 04:41 Lactic Acid Level 1.9 White Blood Count 23.1 #H Red Blood Count 4.97 Hemoglobin 14.8 Hematocrit 43.5 Mean Corpuscular 87.5 Volume Mean Corpuscular 29.8 Hemoglobin Mean Corpuscular 34.0 Hemoglobin Concent Red Cell 13.0 Distribution Width Platelet Count 340 Mean Platelet Volume 9.3 Immature 0.700 H Granulocytes % Neutrophils % 78.9 H Lymphocytes % 12.8 L Monocytes % 7.3 Eosinophils % 0.0 Basophils % 0.3 Nucleated Red Blood 0.0 Cells % Immature 0.170 H Granulocytes # Neutrophils # 18.3 H Lymphocytes # 3.0 H Monocytes # 1.7 H Eosinophils # 0.0 Basophils # 0.1 Nucleated Red Blood 0.0 Cells # Sodium Level 140 Potassium Level 2.9 *L Chloride Level 99 Carbon Dioxide Level 30 Anion Gap 11 Blood Urea Nitrogen 13 Creatinine 1.15 Est Glomerular > 60 Filtrat Rate mL/min Glucose Level 137 Hemoglobin A1c 5.6 Calcium Level 9.6 Phosphorus Level 2.1 L Magnesium Level 1.6 L Triglycerides Level 131 Cholesterol Level 186 LDL Cholesterol, 125 Calculated HDL Cholesterol 35 Cholesterol/HDL 5.3 Ratio Thyroid Stimulating 2.140 Hormone (TSH) Medications Medication Current Medications IV Flush (NS 3 ml) 3 ml PER PROTOCOL IV ; Start 11/16/18 at 14:30 Ondansetron HCl (Zofran Inj) 4 mg Q6H PRN IV NAUSEA/VOMITING; Start 11/16/18 at 14:30 Acetaminophen (Tylenol Tab) 650 mg Q6H PRN PO .PAIN 1-3 OR TEMP Last administered on 11/16/18at 16:33; Admin Dose 650 MG; Start 11/16/18 at 14:30 Acetaminophen/ Hydrocodone Bitart ([place] (5/325)) 1 tab Q6H PRN PO .MOD PAIN 4- 6; Start 11/16/18 at 14:30 Morphine Sulfate (morphine) 2 mg Q4H PRN IV .SEVERE PAIN 7-10 Last administered on 11/17/18at 02:56; Admin Dose 2 MG; Start 11/16/18 at 14:30 Docusate Sodium (Colace) 100 mg Q12H PRN PO .CONSTIPATION; Start 11/16/18 at 14:30 Magnesium Hydroxide (Milk Of Mag) 30 ml DAILY PRN PO .CONSTIPATION; Start 11/16/18 at 14:30 Pantoprazole (Protonix Tab) 40 mg DAILY@06 PO Last administered on 11/17/18at 06:18; Admin Dose 40 MG; Start 11/17/18 at 06:00 Sodium Chloride 1,000 ml @ 75 mls/hr [id number] IV Last administered on 11/17/18at 01:54; Admin Dose 75 MLS/HR; Start 11/16/18 at 14:25 Albuterol/ Ipratropium (Duoneb) 3 ml Q4H RESP THERAPY PRN HHN SHORTNESS OF BREATH; Start 11/16/18 at 14:30 Hydralazine HCl (Apresoline) 10 mg Q6H PRN IV ELEVATED BLOOD PRESSURE; Start 11/16/18 at 14:30 Nitroglycerin (Nitroglycerin (Sl Tab) 0.4 Mg) 1 tab Q5M PRN SL ANGINA; Start 11/16/18 at 14:30 Aspirin (Ecotrin) 325 mg DAILY PO Last administered on 11/17/18 09:19; Admin Dose 325 MG; Start 11/17/18 at 09:00 Atorvastatin Calcium (Lipitor) 80 mg HS PO Last administered on 11/16/18 21:28; Admin Dose 80 MG; Start 11/16/18 at 21:00 Levothyroxine Sodium (Synthroid) 150 mcg BEFORE BREAKFAST PO Last administered on 11/17/18 09:26; Admin Dose 150 MCG; Start 11/17/18 at 07:00 Ticagrelor (Brilinta) 90 mg Q12 PO Last administered on 11/17/18 09:27; Admin Dose 90 MG; Start 11/16/18 at 21:00 Nicotine (Nicoderm 14 Mg/ 24hr) 1 patch DAILY TRANSDERM Last administered on 11/17/18 09:27; Admin Dose 1 PATCH; Start 11/17/18 at 09:00 Lorazepam (Ativan) 1 mg Q6H PRN IV ANXIETY; Start 11/17/18 at 02:30 Potassium Chloride 100 ml @ 50 mls/hr Q2H IVPB Last administered on 11/17/18 08:30; Admin Dose 50 MLS/HR; Start 11/17/18 at 06:00; Stop 11/17/18 at 13:59 ALEX HA Nov 17, 2018 10:29
--- NOTE | 2018-11-17 13:43 | CONS ---
Assessment/Plan Assessment/Plan Hospital Course A: 58 yo M with hx of CVA, HTN, CAD and other comorbidities who presents for evaluation of ams, slurred speech, gait instability. MRI Brain was most notable for acute infarcts in the L posterior parietal, L occipitoparietal, and posterior L frontal lobe CTA H/N is most notable for an acute L temporoparietal infarct as well as occlusion of the M2/M3 branches of the L MCA CUS was unremarkable P: Await echo Await UA, UDS Cont ASA/Lipitor for secondary stroke prevention Permissive HTN (up to 220/110) through today PT/OT/ST as necessary Cont medical management per primary Will follow clinically Consultation Date/Type/Reason Admit Date/Time Nov 16, 2018 at 14:57 Type of Consult Neurology Reason for Consultation acute cva Requesting Provider: ALEX HA Date/Time of Note DATE: 11/17/18 TIME: 13:43 24 HR Interval Summary Free Text/Dictation Continues critical care. Pt reportedly more cooperative with staff and POC. Receiving PT this am. Pt unable to meaningfully contribute at this time. Exam Vital Signs Vitals Vital Signs Date Temp Pulse Resp B/P (MAP) Pulse Ox O2 O2 Flow FiO2 Time Delivery Rate 11/17/18 114 12:00 11/17/18 36 126/97 94 10:00 (107) 11/17/18 98.6 08:00 11/17/18 21 00:15 11/16/18 Room Air 23:00 11/16/18 2.0 18:00 Intake and Output 11/16/18 11/16/18 11/17/18 1515:00 23:00 07:00 OutputOutput Total 300 ml 300 ml BalanceBalance -300 ml -300 ml Exam PE: Gen Appearance: agitated HEENT: Normocephalic Cardiovascular: Regular rate Lungs: Clear bilaterally Abdomen: Soft Extremities: Dry NE: The patient was awake and alert. Had expressive aphasia. Agnostic. Somewhat difficult to direct/redirect. Fund of knowledge was unable to be assessed. The pt was able to follow simple axial/appendicular commands, though he had some c onfusion with right/left. Pupils were equal and reactive to light. There was no afferent pupillary defect. Visual marcano were normal. Funduscopic examination was limited. Extra-ocular movements were full. Ptosis was absent. There was no nystagmus. Facial sensation was normal. Face was symmetric with normal strength. Hearing was intact. Palate movements were normal. Neck strength was normal. There was normal tongue bulk and speed of movement. Tone was normal. Muscle bulk was normal. I did not see fasciculations. The pt had spontaneous movement of all extremities. Vibration sensation was normal. Temperature and pinprick sensation was normal. Rapid alternating movements were normal. There was no dysmetria. There was no intention tremor. Gait was deferred due to bedrest. Arm and leg reflexes were 2+ and symmetric. Dhillon's sign was absent. Plantar responses were flexor. VETO KARIMI NP Nov 17, 2018 13:43
--- NOTE | 2018-11-17 14:55 | RADRPT ---
Echocardiogram Report Patient Name: KAYLI YUPatient ID: [id number] : 1960 (58y 6m)Study Date: 11/16/2018 2:49:24 PM Gender: MAccession #: [id number] Tech: Charlie Wilkins [facility] Location: [facility] Ref.Physician: ALEX HA Height(Cm): BSA: Weight(Kg): Quality: AdequateAccount #: Procedures: Echocardiographic Report: Transthoracic echocardiogram with complete 2D, M-Mode, and doppler examination. Indications: Cerebrovascular Accident. Measurements: 2D/M Mode Doppler Measurement Value Normal Range Measurement Value Normal Range LVIDd 2D 5.2 [ 4.2 - 5.8 ] cm AV Peak [place] 1.2 [ 100.0 - 170.0 ] cm/sec LVIDs 2D 3.7 [ 2.5 - 4.0 ] cm AV Peak PG 6.0 [ 2.0 - 9.0 ] mmHg LVPWd 2D 1.4 [ 0.6 - 1.0 ] cm LVOT Peak [place] 0.9 [ 70.0 - 110.0 ] cm/sec IVSd 2D 1.4 [ 0.6 - 1.0 ] cm LVOT Peak PG 3.0 [ 2.0 - 6.0 ] mmHg AoR Diam 2D 3.8 [ 2.6 - 3.4 ] cm MV E Peak [place] 0.7 [ 60.0 - 130.0 ] cm/sec EDV 2D 130.0 [ 62.0 - 150.0 ] ml MV A Peak [place] 1.0 [ 100.0 - 120.0 ] cm/sec ESV 2D 57.8 [ 21.0 - 61.0 ] ml MV E/A 0.7 [ 0.8 - 1.5 ] ratio EF 2D 55.5 [ 52.0 - 72.0 ] percent MV Decel Time 130 [ 104 - 258 ] msec LA Dimen 2D 3.4 [ 3.0 - 4.0 ] cm Lat E` [place] 0.1 [ 10.0 - 15.0 ] cm/sec Lateral E/E` 9.7 [ 1.0 - 2.0 ] ratio Med E` [place] 0.1 cm/sec MV E/A 0.7 [ 0.8 - 1.5 ] ratio RA Pressure 3.0 mmHg Findings: Left Ventricle: Normal left ventricular systolic function. Normal left ventricular cavity size. Mild concentric left ventricular hypertrophy. Ejection fraction is visually estimated at 55 %. Tissue Doppler/Mitral Doppler indices are consistent with impaired relaxation (Stage I diastolic dysfunction). Right Ventricle: Normal right ventricular size. Normal right ventricular systolic function. Left Atrium: The left atrium is normal in size. Right Atrium: The right atrium is normal in size. Mitral Valve: Mild mitral leaflet calcification. Mild mitral annular calcification. Trace mitral regurgitation. Aortic Valve: No significant aortic stenosis or insufficiency. Aortic cusps appear mildly calcified. Tricuspid Valve: Normal appearance of the tricuspid valve. Unable to obtain RVSP due to minimal presence of tricuspid regurgitation. Pulmonic Valve: Pulmonic valve not well visualized. There is trace pulmonic regurgitation. Pericardium: Normal pericardium with no significant pericardial effusion. Aorta: Normal aortic root. IVC: Normal size and normal respiratory collapse consistent with normal right atrial pressure. Conclusions: Normal left ventricular systolic function. Normal left ventricular cavity size. Mild concentric left ventricular hypertrophy. Ejection fraction is visually estimated at 55 %. Tissue Doppler/Mitral Doppler indices are consistent with impaired relaxation (Stage I diastolic dysfunction). Normal right ventricular size. Normal right ventricular systolic function. The left atrium is normal in size. The right atrium is normal in size. No significant valvular stenosis or regurgitation seen. Normal pericardium with no significant pericardial effusion. Electronically Signed By: Christofer Ronquillo 2018-11-17 14:54:18 PST
[2018-11-17] MEDS: ATORVASTATIN 80 MG TAB PO SCH (21:03)
[2018-11-18] VITALS (18 sets, daily range): BP systolic 105–154; BP diastolic 81–129; PULSE 88–120; RESP 14–32
[2018-11-18] MEDS: SOD CHLORIDE 0.45% 1,000 ML IV SCH ×2 (06:22→07:00)
[2018-11-18] MEDS ORDERED: HALOPERIDOL 5 MG INJ IM ONE (06:30)
[2018-11-18] MEDS: PANTOPRAZOLE (EC) 40 MG TAB PO SCH (06:32)
[2018-11-18] MEDS: LEVOTHYROXINE 150 MCG TAB PO SCH (06:33)
[2018-11-18] MEDS: ASPIRIN (EC) 325 MG TAB PO SCH (09:00)
[2018-11-18] MEDS: NICOTINE (14 MG/24 HR) PATCH TRANSDERM SCH (10:32)
[2018-11-18] MEDS: TICAGRELOR 90 MG TABLET PO SCH ×2 (10:41→20:33)
--- NOTE | 2018-11-18 10:58 | PN ---
Date/Time of Note Date/Time of Note DATE: 11/18/18 TIME: 10:55 Assessment/Plan VTE Prophylaxis Risk score (from Ns)>0 risk: 2 SCD applied (from Ns): Yes Pharmacological prophylaxis: other Lines/Catheters IV C[facility]ter Type (from [facility]): Peripheral IV Urinary Cath still in place: No Assessment/Plan Hospital Course S: Patient still confused at times, able to speak a bit better since yesterday. Seen by OT and speech therapy and PT teams yesterday and today. O: VS-see below PHYSICAL EXAMINATION: GENERAL: Sitting on edge of bed, family at bedside HEENT: Pupils equal, round, react to light. Extraocular muscles intact. NECK: Supple, no thyromegaly. LUNGS: Clear to auscultation bilaterally. CARDIOVASCULAR: S1, S2 heard. No rubs or gallops. ABDOMEN: Soft, nontender, nondistended. Normal bowel sounds. No rebound or guarding. MUSCULOSKELETAL: No lower extremity edema bilaterally. NEUROLOGIC: Moves upper and lower extremities, but with difficulty speaking MRI brain: IMPRESSION: 1. Acute/recent infarcts involving posterior left parietal lobe and insula and left occipital parietal region as well as a smaller focus in the posterior left frontal lobe. 2. Old right medial occipital lobe infarct with associated hemosiderin. 3. Small old lacunar infarcts are noted in left thalamus and right paramedian maria g. 4. Moderate chronic small vessel ischemic changes. 5. Mild generalized cerebral volume loss. 2D echo: Conclusions: Normal left ventricular systolic function. Normal left ventricular cavity size. Mild concentric left ventricular hypertrophy. Ejection fraction is visually estimated at 55 %. Tissue Doppler/Mitral Doppler indices are consistent with impaired relaxation (Stage I diastolic dysfunction). Normal right ventricular size. Normal right ventricular systolic function. The left atrium is normal in size. The right atrium is normal in size. No significant valvular stenosis or regurgitation seen. Normal pericardium with no significant pericardial effusion. ASSESSMENT AND PLAN: 58-year-old male with history of significant coronary artery disease with 7 cardiac stents, prior strokes, [place] 2008, high cholesterol, hypertension, likely positive smoking history, who comes in with altered mental status and difficulty speaking with signs of acute left posterior parietal and temporoparietal infarcts. 1. Altered mental status and difficulty speaking- secondary to acute infarct. Patient on MRI found with acute/recent infarcts involving posterior left parietal lobe and insula and left occipital parietal region as well as a smaller focus in the posterior left frontal lobe. -Continue PT, OT and speech therapy -also awaiting ARU eval -Continue high dose aspirin and statin. -Follow-up recommendations from neurology consult. -Continue neuro checks every 4 hours. -Replete low electrolytes 2. History of coronary artery disease with stents. - For now, continue his Brilinta,high dose aspirin as well. 3. hypothyroidism-thyroid panel appears stable - Continue Synthroid. 4. History of high cholesterol- - Again, he is on Lipitor for the stroke, but also for high cholesterol at home. 5. Hypertension-stable -Continue current medications, monitor for now 6. Deep venous thrombosis prophylaxis. Again, he is on Brilinta and SCDs. 7. GI prophylaxis- PPI. Critical care time spent on patient care today equals 45 minutes. Result Diagram: 11/18/1839 11/18/1839 Results 24hrs Laboratory Tests Test 11/18/18 05:39 White Blood Count 21.0 H Red Blood Count 5.17 Hemoglobin 15.3 Hematocrit 45.6 Mean Corpuscular Volume 88.2 Mean Corpuscular Hemoglobin 29.6 Mean Corpuscular Hemoglobin Concent 33.6 Red Cell Distribution Width 13.1 Platelet Count 342 Mean Platelet Volume 9.4 Immature Granulocytes % 0.700 H Neutrophils % 78.4 H Lymphocytes % 13.5 L Monocytes % 6.3 Eosinophils % 0.9 Basophils % 0.2 Nucleated Red Blood Cells % 0.0 Immature Granulocytes # 0.140 H Neutrophils # 16.5 H Lymphocytes # 2.8 Monocytes # 1.3 H Eosinophils # 0.2 Basophils # 0.1 Nucleated Red Blood Cells # 0.0 Sodium Level 141 Potassium Level 3.5 Chloride Level 104 Carbon Dioxide Level 24 Anion Gap 13 Blood Urea Nitrogen 24 #H Creatinine 1.46 H Est Glomerular Filtrat Rate mL/min 50 L Glucose Level 105 Calcium Level 9.8 Exam/Review of Systems Exam Vitals Vital Signs Date Temp Pulse Resp B/P (MAP) Pulse Ox O2 O2 Flow FiO2 Time Delivery Rate 11/18/18 112 08:00 11/18/18 98.4 16 111/87 95 Room Air 04:00 (95) 11/17/18 21 00:15 11/16/18 2.0 18:00 Intake and Output 11/17/18 11/17/18 11/18/18 1515:00 23:00 07:00 IntakeIntake Total 120 ml 9303 ml OutputOutput Total 275 ml BalanceBalance -155 ml 9303 ml Results Results 24hrs Laboratory Tests Test 11/18/18 05:39 White Blood Count 21.0 H Red Blood Count 5.17 Hemoglobin 15.3 Hematocrit 45.6 Mean Corpuscular Volume 88.2 Mean Corpuscular Hemoglobin 29.6 Mean Corpuscular Hemoglobin Concent 33.6 Red Cell Distribution Width 13.1 Platelet Count 342 Mean Platelet Volume 9.4 Immature Granulocytes % 0.700 H Neutrophils % 78.4 H Lymphocytes % 13.5 L Monocytes % 6.3 Eosinophils % 0.9 Basophils % 0.2 Nucleated Red Blood Cells % 0.0 Immature Granulocytes # 0.140 H Neutrophils # 16.5 H Lymphocytes # 2.8 Monocytes # 1.3 H Eosinophils # 0.2 Basophils # 0.1 Nucleated Red Blood Cells # 0.0 Sodium Level 141 Potassium Level 3.5 Chloride Level 104 Carbon Dioxide Level 24 Anion Gap 13 Blood Urea Nitrogen 24 #H Creatinine 1.46 H Est Glomerular Filtrat Rate mL/min 50 L Glucose Level 105 Calcium Level 9.8 Medications Medication Current Medications IV Flush (NS 3 ml) 3 ml PER PROTOCOL IV ; Start 11/16/18 at 14:30 Ondansetron HCl (Zofran Inj) 4 mg Q6H PRN IV NAUSEA/VOMITING; Start 11/16/18 at 14:30 Acetaminophen (Tylenol Tab) 650 mg Q6H PRN PO .PAIN 1-3 OR TEMP Last administered on 11/16/18at 16:33; Admin Dose 650 MG; Start 11/16/18 at 14:30 Acetaminophen/ Hydrocodone Bitart ([place] (5/325)) 1 tab Q6H PRN PO .MOD PAIN 4- 6; Start 11/16/18 at 14:30 Morphine Sulfate (morphine) 2 mg Q4H PRN IV .SEVERE PAIN 7-10 Last administered on 11/17/18at 02:56; Admin Dose 2 MG; Start 11/16/18 at 14:30 Docusate Sodium (Colace) 100 mg Q12H PRN PO .CONSTIPATION; Start 11/16/18 at 14:30 Magnesium Hydroxide (Milk Of Mag) 30 ml DAILY PRN PO .CONSTIPATION; Start 11/16/18 at 14:30 Pantoprazole (Protonix Tab) 40 mg DAILY@06 PO Last administered on 11/18/18at 06:32; Admin Dose 40 MG; Start 11/17/18 at 06:00 Albuterol/ Ipratropium (Duoneb) 3 ml Q4H RESP THERAPY PRN HHN SHORTNESS OF BREATH; Start 11/16/18 at 14:30 Hydralazine HCl (Apresoline) 10 mg Q6H PRN IV ELEVATED BLOOD PRESSURE; Start 11/16/18 at 14:30 Nitroglycerin (Nitroglycerin (Sl Tab) 0.4 Mg) 1 tab Q5M PRN SL ANGINA; Start 11/16/18 at 14:30 Aspirin (Ecotrin) 325 mg DAILY PO Last administered on 11/18/18 09:00; Admin Dose 325 MG; Start 11/17/18 at 09:00 Atorvastatin Calcium (Lipitor) 80 mg HS PO Last administered on 11/17/18at 21:03; Admin Dose 80 MG; Start 11/16/18 at 21:00 Levothyroxine Sodium (Synthroid) 150 mcg BEFORE BREAKFAST PO Last administered on 11/18/18 06:33; Admin Dose 150 MCG; Start 11/17/18 at 07:00 Ticagrelor (Brilinta) 90 mg Q12 PO Last administered on 11/18/18 10:41; Admin Dose 90 MG; Start 11/16/18 at 21:00 Nicotine (Nicoderm 14 Mg/ 24hr) 1 patch DAILY TRANSDERM Last administered on 11/18/18at 10:32; Admin Dose 1 PATCH; Start 11/17/18 at 09:00 Lorazepam (Ativan) 1 mg Q6H PRN IV ANXIETY Last administered on 11/18/18 09:29; Admin Dose 1 MG; Start 11/17/18 at 02:30 Sodium Chloride 1,000 ml @ 125 mls/hr Q8H IV ; Start 11/18/18 at 11:00 ALEX HA Nov 18, 2018 10:58
[2018-11-18] MEDS: SOD CHLORIDE 0.9% 1,000 ML IV SCH ×2 (11:15→19:00)
--- NOTE | 2018-11-18 11:59 | CONS ---
Assessment/Plan Assessment/Plan Hospital Course A: 58 yo M with hx of CVA, HTN, CAD and other comorbidities who presents for evaluation of ams, slurred speech, gait instability. MRI Brain was most notable for acute infarcts in the L posterior parietal, L occipitoparietal, and posterior L frontal lobe CTA H/N is most notable for an acute L temporoparietal infarct as well as occlusion of the M2/M3 branches of the L MCA CUS was unremarkable Echo is unrevealing. P: Await UA, UDS Cont ASA/Lipitor for secondary stroke prevention BP and other medical management per primary Reorient as necessary Limit sedating medications where possible PT/OT/ST as tolerated Will follow clinically Consultation Date/Type/Reason Admit Date/Time Nov 16, 2018 at 14:57 Type of Consult Neurology Reason for Consultation acute cva Requesting Provider: ALEX HA Date/Time of Note DATE: 11/18/18 TIME: 11:59 24 HR Interval Summary Free Text/Dictation Continues critical care. Pt intermittently agitated, however no acute changes were reported. Pt remains unable to fully communicate at this time. Exam Vital Signs Vitals Vital Signs Date Temp Pulse Resp B/P (MAP) Pulse Ox O2 O2 Flow FiO2 Time Delivery Rate 11/18/18 112 08:00 11/18/18 98.4 16 111/87 95 Room Air 04:00 (95) 11/17/18 21 00:15 11/16/18 2.0 18:00 Intake and Output 11/17/18 11/17/18 11/18/18 1515:00 23:00 07:00 IntakeIntake Total 120 ml 9303 ml OutputOutput Total 275 ml BalanceBalance -155 ml 9303 ml Exam PE: Gen Appearance: anxious HEENT: Normocephalic Cardiovascular: Regular rate Lungs: Clear bilaterally Abdomen: Soft Extremities: Dry NE: The patient was awake and alert. Had receptive/expressive aphasia. Agnostic. Somewhat difficult to direct/redirect. Fund of knowledge was unable to be assessed. The pt was able to follow simple axial/appendicular commands, though he had some confusion with right/left. Pupils were equal and reactive to light. There was no afferent pupillary defect. Visual marcano were normal. Funduscopic examination was limited. Extra-ocular movements were full. Ptosis was absent. There was no nystagmus. Facial sensation was normal. Face was symmetric with normal strength. Hearing was intact. Palate movements were normal. Neck strength was normal. There was normal tongue bulk and speed of movement. Tone was normal. Muscle bulk was normal. I did not see fasciculations. The pt had spontaneous movement of all extremities. Vibration sensation was normal. Temperature and pinprick sensation was normal. Rapid alternating movements were normal. There was no dysmetria. There was no intention tremor. Gait was deferred due to bedrest. Arm and leg reflexes were 2+ and symmetric. Dhillon's sign was absent. Plantar responses were flexor. VETO KARIMI NP Nov 18, 2018 11:59
--- NOTE | 2018-11-18 16:13 | PDOCDIS ---
Discharge Instructions CONDITION [id number] Patient Condition: [id number] Serious HOME CARE INSTRUCTIONS: [id number] Diet Instructions: [id number] Low Fat /Cholesterol ALEX HA Nov 18, 2018 16:13
--- NOTE | 2018-11-18 16:20 | DS ---
Date/Time of Note Date/Time of Note DATE: 11/18/18 TIME: 16:14 Discharge Summary Admission/Discharge Info Admit Date/Time Nov 16, 2018 at 14:57 Discharge Date/Time Discharge Diagnosis 1. Altered mental status and difficulty speaking- secondary to acute infarct. 2. History of coronary artery disease with stents. 3. hypothyroidism-thyroid panel appears stabl 4. History of high cholesterol- 5. Hypertension-stable Patient Condition: Serious Procedures MRI brain: IMPRESSION: 1. Acute/recent infarcts involving posterior left parietal lobe and insula and left occipital parietal region as well as a smaller focus in the posterior left frontal lobe. 2. Old right medial occipital lobe infarct with associated hemosiderin. 3. Small old lacunar infarcts are noted in left thalamus and right paramedian maria g. 4. Moderate chronic small vessel ischemic changes. 5. Mild generalized cerebral volume loss. 2D echo: Conclusions: Normal left ventricular systolic function. Normal left ventricular cavity size. Mild concentric left ventricular hypertrophy. Ejection fraction is visually estimated at 55 %. Tissue Doppler/Mitral Doppler indices are consistent with impaired relaxation (Stage I diastolic dysfunction). Normal right ventricular size. Normal right ventricular systolic function. The left atrium is normal in size. The right atrium is normal in size. No significant valvular stenosis or regurgitation seen. Normal pericardium with no significant pericardial effusion. Hx of Present Illness 58-year-old male with past medical history based on records of [place] in 2008 with total of 7 cardiac stents, prior stroke, high cholesterol, hypertension, likely extensive smoking history, who was brought in for altered mental status. Most of the information is obtained from ER documentation and speaking with the patient's girlfriend as the patient is presently at MRI, getting a head scan. Apparently, the patient went to bed around 9:00 p.m. last night. Per significant other, had mild confusion, but allows acting normally. Apparently, he woke up around 1:00 a.m. and seemed more confused and had some difficulty walking. He went back to sleep and woke up again around 7:00 a.m. and continued to have some confusion and also difficulty speaking at this time. He had an episode of vomiting as well. He had some mild shortness of breath, but no chest pain. No fevers or chills. No upper or lower GI bleeding. No diarrhea or constipation. No nausea. Significant other convince the patient to come to the ER. Today when he came in, he had a head CT performed that showed new area of low attenuation with loss of strange white matter differentiation in the left posterior parietal lobe consistent with acute area of infarction. Also, there was an old right occipital infarct with encephalomalacia found. The patient underwent CTA of the head and neck that shows abrupt cutoff for termination of left distal M2 and M3 segment of the left middle cerebral artery compatible with acute infarct. There is also acute left temporal and parietal lobe ischemic infarcts. No evidence of abnormal enhancement, however. No evidence of any aneurysms or AV malformations. This was a right common carotid artery and internal carotid artery origin, atherosclerotic plaque, 35% stenosis right internal carotid artery. Recommend correlation with possible fibro-intimal m uscular dysplasia. A call was been made out from the neurology team, who is coming to evaluate the patient now, and code stroke was initiated as well in the ER, but the patient appeared to be outside of the tPA window. Of note, per records, the patient apparently had his last cardiac stent placement in 04/2018. Also, has had multiple strokes in the past and apparently has currently does have high grade I blockage of one of his coronary arteries, but has not had this taken care of apparently. Hospital Course So patient was admitted to intensive care unit, found again with acute left posterior parietal and temporoparietal infarcts. Patient was seen by neurology team as well as speech therapy, OT and PT teams during the hospital stay. He was allow for permissive hypertension for the first 24-48 hours. His symptoms slowly improved but he still had some difficulty speaking by the time of discharge. He worked extensively as mentioned above with the therapy teams. He was able to ambulate with some assistance, tolerated p.o. diet. The rest of his vital signs and labs appear to be normal on the day of discharge. Patient will be discharged to acute rehab facility later today in improved condition. See printed medical reconciliation sheet for full list of discharge medications. Home Meds Reported Medications Levothyroxine Sodium* (Levothyroxine Sodium*) 150 Mcg Tablet, 150 MCG PO BEFORE BREAKFAST, #30 TAB 11/16/18 Ticagrelor* (Brilinta*) 90 Mg Tablet, 90 MG PO Q12, TAB 11/16/18 Amlodipine Besylate* (Amlodipine Besylate*) 10 Mg Tablet, 10 MG PO DAILY, #30 TAB 11/16/18 Atorvastatin* (Atorvastatin*) 80 Mg Tablet, 80 MG PO HS, TAB 07/05/15 Discontinued Scripts Aspirin (Aspirin) 81 Mg Chew, 81 MG PO DAILY, #30 TAB Prov:CHELE LINDNELL 11/15/17 Amlodipine Besylate* (Amlodipine Besylate*) 10 Mg Tablet, 10 MG PO HS, #30 TAB Prov:DIOGOMALCOLM 11/15/17 Levothyroxine Sodium* (Synthroid*) 100 Mcg Tablet, 100 MCG PO BEFORE BREAKFAST, #30 TAB Prov:KENTRELLMALCOLM PARHAM 11/15/17 Losartan Potassium* (Losartan Potassium*) 50 Mg Tablet, 50 MG PO DAILY, #30 TAB Prov:MALCOLM LIND 11/15/17 Clonidine Hcl* (Clonidine Hcl*) 0.1 Mg Tab, 0.1 MG PO Q4 PRN for ELEVATED BLOOD PRESSURE, #30 TAB for systolic blood pressure greater than 160 Prov:DIOGOMALCOLM 11/15/17 Primary Care Provider Not On Staff Doctor Time spent on discharge: > 30 minutes Pending Labs Laboratory Tests Test 11/18/18 05:39 White Blood Count 21.0 10^3/ul (4.8-10.8) Red Blood Count 5.17 10^6/ul (4.70-6.10) Hemoglobin 15.3 g/dl (14.0-18.0) Hematocrit 45.6 % (42.0-52.0) Mean Corpuscular Volume 88.2 fl (82.0-101.0) Mean Corpuscular Hemoglobin 29.6 pg (29.0-33.0) Mean Corpuscular Hemoglobin Concent 33.6 g/dl (32.0-37.0) Red Cell Distribution Width 13.1 % (11.5-14.5) Platelet Count 342 10^3/UL (140-415) Mean Platelet Volume 9.4 fl (7.4-10.4) Immature Granulocytes % 0.700 % (0.001-0.429) Neutrophils % 78.4 % (39.0-77.0) Lymphocytes % 13.5 % (15.0-51.0) Monocytes % 6.3 % (0.0-11.0) Eosinophils % 0.9 % (0.0-7.0) Basophils % 0.2 % (0.0-2.0) Nucleated Red Blood Cells % 0.0 /100WBC (0.0-0.0) Immature Granulocytes # 0.140 10^3/ul (0.0-0.031) Neutrophils # 16.5 10^3/ul (1.6-7.5) Lymphocytes # 2.8 10^3/ul (0.8-2.9) Monocytes # 1.3 10^3/ul (0.3-0.9) Eosinophils # 0.2 10^3/ul (0.0-0.5) Basophils # 0.1 10^3/ul (0.0-0.1) Nucleated Red Blood Cells # 0.0 10^3/ul (0.0-0.0) Sodium Level 141 mmol/L (135-144) Potassium Level 3.5 mmol/L (3.5-5.1) Chloride Level 104 mmol/L (97-110) Carbon Dioxide Level 24 mmol/L (21-31) Anion Gap 13 (5-13) Blood Urea Nitrogen 24 mg/dl (7-20) Creatinine 1.46 mg/dl (0.61-1.24) Est Glomerular Filtrat Rate mL/min 50 mL/min (>60) Glucose Level 105 mg/dl (70-220) Calcium Level 9.8 mg/dl (8.4-10.2) ALEX HA Nov 18, 2018 16:20
[2018-11-18] MEDS: ATORVASTATIN 80 MG TAB PO SCH (20:27)
== END 2018-11-18 22:32 | DRG 66 ==
LOC: E/R 12:13 → ICU 14:57 → 6WM 11-18 15:20
PROVIDERS: ADMIT Hospitalist; ATTEND Hospitalist
DX: I63.512 Cerebral infarction due to unspecified occlusion or stenosis of left middle cerebral artery (principal); R47.01 Aphasia; I25.10 Atherosclerotic heart disease of native coronary artery without angina pectoris; E03.9 Hypothyroidism, unspecified; I10 Essential (primary) hypertension; I25.2 Old myocardial infarction; R29.704 NIHSS score 4; R47.81 Slurred speech; R26.89 Other abnormalities of gait and mobility; Z95.5 Presence of coronary angioplasty implant and graft
CPT/HCPCS: 36415; 70450; 70496; 70498; 70551; 71045; 80048; 80053; 80061; 80307; 82550; 82553; 83036; 83605; 83735; 84100; 84439; 84443; 84484; 85025; 85610; 85651; 85730; 86592; 92507; 92526; 92610; 93005; 93306; 93880; 97110; 97116; 97163; 97167; 97530; 97535; J1200; J1630; J2060; J2270; J3475; J3480; J7030; Q9967

== ENCOUNTER 2018-11-18 22:46 | Inpatient (IN) | payer OTHER ==
[~2018-11-18] VITALS: Ht 175.3 cm; Wt 72.1 kg
[~2018-11-18 22:46] MED LIST changes: -ASPI-831 PO; -CLON-379 PO; -LEVO-86 PO; +LEVO150T7 PO; -LOSA50TA14 PO; +TICA90TA PO
[2018-11-18] MEDS ORDERED: MAGNESIUM HYDROXIDE 30ML CUP PO PRN ×2 (23:30→23:45)
[2018-11-18] MEDS ORDERED: BISACODYL 10 MG SUPP PR PRN (23:30)
[2018-11-18] MEDS ORDERED: LACTULOSE 30ML CUP PO PRN (23:30)
[2018-11-18] MEDS ORDERED: hydrALAzine 20 MG INJ IV PRN (23:45)
[2018-11-18] MEDS ORDERED: NITROGLYCERIN (SL) 0.4 MG TAB SL PRN (23:45)
[2018-11-18] MEDS ORDERED: DOCUSATE SODIUM 100 MG CAP PO PRN (23:45)
[2018-11-18] MEDS ORDERED: ONDANSETRON 4 MG INJ IV PRN (23:45)
[2018-11-18 23:46] VITALS: BP 133/99; PULSE 99; RESP 18; Ht 175.3 cm; Wt 72.1 kg
[2018-11-19] MEDS: ACETAMINOPHEN 325 MG TAB PO PRN (00:34)
[2018-11-19] MEDS: ALBUTEROL/IPRATROPIUM (NEB) 3 ML AMP HHN SCH ×6 (01:03→20:16)
[2018-11-19] MEDS: PIPER-TAZO 3.375 GM IV (PMX) 100 ML IVPB SCH ×4 (01:56→17:32)
[2018-11-19 02:00] VITALS: BP 128/82; PULSE 96; RESP 20
[2018-11-19] MEDS: PANTOPRAZOLE (EC) 40 MG TAB PO SCH (06:30)
[2018-11-19] MEDS: LEVOTHYROXINE 150 MCG TAB PO SCH (06:30)
[2018-11-19 08:00] VITALS: BP 128/77; PULSE 84; RESP 18
[2018-11-19] MEDS ORDERED: POTASSIUM CHLORIDE (SR) 20 MEQ TAB PO STA (08:04)
[2018-11-19] MEDS: ASPIRIN (EC) 81 MG TAB PO SCH (09:09)
[2018-11-19] MEDS: DOCUSATE SODIUM 100 MG CAP PO SCH ×2 (09:09→20:55)
[2018-11-19] MEDS: TICAGRELOR 90 MG TABLET PO SCH ×2 (09:10→20:58)
[2018-11-19] MEDS: NICOTINE (14 MG/24 HR) PATCH TRANSDERM SCH (09:11)
[2018-11-19] MEDS: morphine 2 MG INJ IV PRN ×2 (10:53→18:13)
[2018-11-19 14:00] VITALS: BP 150/94; PULSE 78; RESP 16
--- NOTE | 2018-11-19 14:35 | HP ---
REHABILITATION POST ADMISSION PHYSICIAN EVALUATION DATE OF ADMISSION: 11/19/2018 CHIEF COMPLAINT: Right-sided weakness. HISTORY OF PRESENT ILLNESS: The patient is a 58-year-old right-handed gentleman with history of coronary artery disease, myocardial infarction, stents, hypertension, old right CVA, presented to [facility] on 11/16/2018 with mental status changes, vomiting, elevated blood pressure. The patient had imaging studies done including MRI of the brain showing left posterior temporal/parietal occipital infarcts. Also, old right occipital infarct. The patient had a CTA done showing left MCA stenosis. The patient is currently on aspirin daily. He is also on Brilinta for his coronary artery disease with stenting. Patient's issues included aphasia, mental status changes, some mild right-sided weakness, and a significant decline in his functional levels. He was completely independent prior to admission. He is on IV Zosyn at this time. Unclear the reason he has had a leukocytosis. I see no cultures. His chest x-ray on admission showed no infiltrates. The patient was initiated on out of bed activities, found to have a significant decline in his premorbid functional levels, evaluated for acute rehab, deemed an appropriate candidate, meeting all CMS guidelines. He now transfers for definitive rehabilitation procedures. FUNCTIONAL HISTORY: Prior to recent events, he was independent with all mobility and ADLs without the use of assistive equipment. PAST MEDICAL HISTORY: Coronary artery disease, myocardial infarction, stents, hypertension, old right CVA, hypothyroidism. CURRENT MEDICATIONS: 1. Zosyn. 2. Tylenol. 3. Albuterol. 4. ____ 5. Lipitor. 6. Apresoline. 7. [place]. 8. Lactulose. 9. Synthroid. 10. Ativan p.r.n. 11. Morphine p.r.n. 12. Nitroglycerin p.r.n. 13. Protonix. 14. Senokot. 15. Brilinta. FAMILY & SOCIAL HISTORY: The patient lives alone prior to admission. Unclear if there are any stairs upon his return back to the residence. REVIEW OF SYSTEMS: Difficult to obtain secondary to patient's expressive aphasia. FAMILY HISTORY: Noncontributory. PHYSICAL EXAMINATION: VITAL SIGNS: Temperature is 98.4, respiratory rate is 20, pulse is 96, BP 128/82. LUNGS: Clear to auscultation bilaterally. COR: Distant heart sounds. No murmurs, rubs, or gallops. ABDOMEN: Soft, nontender. EXTREMITIES: No clubbing, cyanosis, edema. Homans test is negative. NEUROLOGIC: Cranial nerves II-XII are grossly intact. The patient has obvious word finding deficits. He is able to follow some simple commands. He mimics. His attention is fair plus. Motor strength left upper and lower extremity 5/5, right upper and lower extremity 4 to 4+/5. He has some mild dysmetria. CURRENT LEVEL OF FUNCTION: Upper extremity dressing minimal assistance, lower extremity dressing moderate assistance, toileting minimal assistance, gait minimal assistance, front-wheel walker. REHABILITATION IMPAIRMENT CATEGORY: Stroke. ETIOLOGIC DIAGNOSIS: Left cerebrovascular accident/ischemic infarct involving the temporoparietal occipital lobes in a right-handed patient. MEDICAL AND REHABILITATION COMORBIDITIES: 1. Left CVA. 2. Aphasia. 3. Hypertension. 4. Leukocytosis. 5. Coronary artery disease, history of MT, stenting. 6. 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 7. Rule out dysphagia. FUNCTIONAL DEFICITS: 1. Impaired mobility. 2. Impaired ADLs. 3. Impaired communication. 4. Rule out dysphagia. POTENTIAL REHABILITATION AND MEDICAL COMPLICATIONS: 1. Extension of stroke. 2. DVT. 3. Decubitus ulcer. 4. Labile hypertension. 5. Urinary retention. FUNCTIONAL BARRIERS TO DISCHARGE: 1. Lives alone. 2. Impaired mobility. 3. Impaired ADLs. 4. Impaired safety. RECOMMENDATIONS AND DISCUSSION: 1. This patient will benefit from the acute respiratory coronary rehabilitation program here at [facility] under the care, supervision, direction, daily oversight by board-certified physical medicine implementation specialist for the following: A. Physical therapy: Bed mobility, transfers, sitting balance, standing balance, endurance, strength, gait, stairs. B. Occupational therapy: ADLs, adaptive equipment needs, energy conservation techniques. C. Speech therapy: Cognition, communication, rule out dysphagia. 2. 24-hour rehabilitation nursing care for carryover of all mobility and ADL skills, facilitate out of bed to a chair as much as possible to maintain cardiopulmonary compliance, rehabilitation nursing, and also bowel and bladder training, maintain skin integrity, optimize p.o. intake. 3. Rehabilitation social worker delinquency prevention support, adjustment counseling, disposition planning. 4. Continue close medical management for the following: A. Hypertension. Maintain systolics between 130 and 150 post-CVA. B. Leukocytosis. Check a chest x-ray, UA, C and S. He is on Zosyn. C. Coronary artery disease. Cardiac precautions and all therapeutic disciplines. FUNCTIONAL GOALS: 1. Modified independent in all mobility and ADLs skills. 2. Express basic wants and needs. 3. Least restrictive diet. 4. Increase functional endurance, strength and safety. DISPOSITION PLAN: Back home. ESTIMATED LENGTH OF STAY FOR PROCEDURES: 14 days. Post-acute rehab needs likely include home health physical therapy, occupational therapy and nursing. REHABILITATION PROGNOSIS: Good. Please note, I personally performed this patient's rehabilitation history and physical status post admission evaluation. The patient with a reasonable prognosis for significant functional recovery in a reasonable time frame, agreeable to participate with acute rehabilitation program. Since the initial screen, the patient's functional levels and medical status are essentially unchanged. Dictated By: SULTANA MEJÍA/HAKEEM Conf#: [id number] DID#: [id number] CARLA
--- NOTE | 2018-11-19 15:56 | CONS ---
DATE OF ADMISSION: 11/18/2018 DATE OF CONSULTATION: HISTORY OF PRESENT ILLNESS: This is an unfortunate 58-year-old gentleman with a prior history of cor onary artery disease with prior stents placed, history of previous CVA, hypertension, hyperlipidemia, and an extensive tobacco history, brought in yesterday for agitation, altered mental status and dysa rthria. In the ER, emergent CT of the brain was performed and patient found to have low attenuation, loss of strange matter in the left posterior parietal lobe consistent with acute infarct. Prior infarc t in the right occipital lobe was seen. CT angiogram was performed which showed abrupt cutoff at ter mination of left distal M2 M3 segment of the middle cerebral artery consistent with acute CVA. The p atient was outside TPA window and subsequently managed conservatively with BP management, statin, asp irin. He has subsequently been evaluated by Speech Therapy, Physical Therapy, and transferred to u te rehab unit for continuing care. PAST MEDICAL HISTORY: As above. MEDICATIONS: Per chart. ALLERGIES: NONE. SOCIAL HISTORY: He has a positive tobacco history. Occasional alcohol, no history of drug use. FAMILY HISTORY: Noncontributory. SYSTEMS REVIEW: A 12-point review of systems was negative other than that mentioned above. PHYSICAL EXAMINATION: GENERAL: Moderately obese gentleman, comfortable at rest, no acute distress. VITAL SIGNS: Currently afebrile, pulse is 84, blood pressure 128/77, O2 saturation 96% on room air. NECK: Supple. No JVD or lymphadenopathy. CARDIAC: S1, S2, no added sounds or murmurs. CHEST: Diminished air entry bilaterally. ABDOMEN: Soft, nontender. No guarding or rebound. EXTREMITIES: No cyanosis, clubbing, edema. NEUROLOGICAL: Grossly intact. No focal deficits. LABORATORY DATA: White count 14.0, hemoglobin 13.5. Chemistry: BUN 22, creatinine 1.32. DIAGNOSTIC STUDIES: CT brain findings as above. Carotid Dopplers showed no significant stenosis. M RI of the brain showed acute recent infarcts with prior infarcts noted. IMPRESSION AND PLAN: 1. Acute CVA with history of extensive previous CVAs, now with significant agitation and aphasia. The patient will require: 1. Continue blood pressure management. 2. Physical therapy. 3. Continue aspirin, statin, and Brilinta. 4. Consider de-escalation of antibiotics soon. Dictated By: MO WILKINS/HAKEEM Conf#: [id number] DID#: [id number] CC: SAIGE DRIVER MD;*EndCC*
[2018-11-19 19:17] VITALS: BP 132/87; PULSE 82; RESP 18
[2018-11-19] MEDS: SENNA TAB PO SCH (20:55)
[2018-11-19] MEDS: ATORVASTATIN 80 MG TAB PO SCH (20:55)
[2018-11-20] MEDS: PIPER-TAZO 3.375 GM IV (PMX) 100 ML IVPB SCH ×5 (00:38→18:06)
[2018-11-20] MEDS: ALBUTEROL/IPRATROPIUM (NEB) 3 ML AMP HHN SCH ×7 (01:00→20:58)
[2018-11-20] MEDS: ACETAMINOPHEN 325 MG TAB PO PRN ×2 (01:12→21:24)
[2018-11-20] MEDS: LORAZEPAM 2 MG INJ IV PRN ×2 (01:13→21:24)
[2018-11-20 02:00] VITALS: BP 136/84; PULSE 86; RESP 18
[2018-11-20] MEDS: LEVOTHYROXINE 150 MCG TAB PO SCH (06:15)
[2018-11-20] MEDS: PANTOPRAZOLE (EC) 40 MG TAB PO SCH (06:15)
[2018-11-20 07:00] VITALS: BP 157/97; PULSE 81; RESP 18
[2018-11-20] MEDS: ASPIRIN (EC) 81 MG TAB PO SCH (09:24)
[2018-11-20] MEDS: DOCUSATE SODIUM 100 MG CAP PO SCH ×2 (09:24→21:23)
[2018-11-20] MEDS: TICAGRELOR 90 MG TABLET PO SCH ×2 (09:24→21:28)
[2018-11-20] MEDS: NICOTINE (14 MG/24 HR) PATCH TRANSDERM SCH (09:25)
--- NOTE | 2018-11-20 13:38 | CONS ---
Consult Date/Type/Reason Admit Date/Time Nov 18, 2018 at 22:46 Initial Consult Date Type of Consultation: Internal medicine Date/Time of Note DATE: 11/20/18 TIME: 13:37 Subjective Patient stable this morning. No new events Objective Vitals Vital Signs Date Temp Pulse Resp B/P (MAP) Pulse Ox O2 O2 Flow FiO2 Time Delivery Rate 11/20/18 97.9 81 18 157/97 96 Room Air 07:00 (117) 11/19/18 21 01:03 Intake and Output 11/19/18 11/19/18 11/20/18 1515:00 23:00 07:00 IntakeIntake Total 300 ml 1100 ml 1200 ml OutputOutput Total 750 ml BalanceBalance 300 ml 350 ml 1200 ml Exam PHYSICAL EXAMINATION: GENERAL: Moderately obese gentleman, comfortable at rest, no acute distress. VITAL SIGNS: NECK: Supple. No JVD or lymphadenopathy. CARDIAC: S1, S2, no added sounds or murmurs. CHEST: Diminished air entry bilaterally. ABDOMEN: Soft, nontender. No guarding or rebound. EXTREMITIES: No cyanosis, clubbing, edema. NEUROLOGICAL: Grossly intact. No focal deficits. Results/Medications Result Diagram: 11/19/1811611/19/18 011 Home Meds Reported Medications Levothyroxine Sodium* (Levothyroxine Sodium*) 150 Mcg Tablet, 150 MCG PO BEFORE BREAKFAST, #30 TAB 11/16/18 Ticagrelor* (Brilinta*) 90 Mg Tablet, 90 MG PO Q12, TAB 11/16/18 Amlodipine Besylate* (Amlodipine Besylate*) 10 Mg Tablet, 10 MG PO DAILY, #30 TAB 11/16/18 Atorvastatin* (Atorvastatin*) 80 Mg Tablet, 80 MG PO HS, TAB 07/05/15 Discontinued Scripts Aspirin (Aspirin) 81 Mg Chew, 81 MG PO DAILY, #30 TAB Prov:REGIDORMALCOLM 11/15/17 Amlodipine Besylate* (Amlodipine Besylate*) 10 Mg Tablet, 10 MG PO HS, #30 TAB Prov:REGIDORMALCOLM 11/15/17 Levothyroxine Sodium* (Synthroid*) 100 Mcg Tablet, 100 MCG PO BEFORE BREAKFAST, #30 TAB Prov:REGIDORMALCOLM 11/15/17 Losartan Potassium* (Losartan Potassium*) 50 Mg Tablet, 50 MG PO DAILY, #30 TAB Prov:MALCOLM LIND 11/15/17 Clonidine Hcl* (Clonidine Hcl*) 0.1 Mg Tab, 0.1 MG PO Q4 PRN for ELEVATED BLOOD PRESSURE, #30 TAB for systolic blood pressure greater than 160 Prov:MALCOLM LIND 11/15/17 Medications Current Medications Docusate Sodium (Colace) 100 mg BID PO Last administered on 11/20/18 09:24; Admin Dose 100 MG; Start 11/19/18 at 09:00 Senna (Senokot) 1 tab HS PO Last administered on 11/19/18at 20:55; Admin Dose 1 TAB; Start 11/19/18 at 21:00 Magnesium Hydroxide (Milk Of Mag) 30 ml BID PRN PO CONSTIPATION; Start 11/18/18 at 23:30 Lactulose (Enulose) 20 gm DAILY PRN PO CONSTIPATION; Start 11/18/18 at 23:30 Bisacodyl (Dulcolax Supp) 10 mg DAILY PRN [place] CONSTIPATION; Start 11/18/18 at 23:30 Lorazepam (Ativan) 1 mg Q6H PRN IV ANXIETY Last administered on 11/20/18at 01:13; Admin Dose 1 MG; Start 11/18/18 at 23:45 Magnesium Hydroxide (Milk Of Mag) 30 ml DAILY PRN PO CONSTIPATION; Start 11/18/18 at 23:45 Morphine Sulfate (morphine) 2 mg Q4H PRN IV SEVERE PAIN LEVEL 7-10 Last administered on 11/19/18at 18:13; Admin Dose 2 MG; Start 11/18/18 at 23:45 Nicotine (Nicoderm 14 Mg/ 24hr) 1 patch DAILY TRANSDERM Last administered on 11/20/18at 09:25; Admin Dose 1 PATCH; Start 11/19/18 at 09:00 Nitroglycerin (Nitroglycerin (Sl Tab) 0.4 Mg) 1 tab Q5M PRN SL CHEST PAIN; Start 11/18/18 at 23:45 Ondansetron HCl (Zofran Inj) 4 mg Q6H PRN IV NAUSEA AND/OR VOMITING; Start 11/18/18 at 23:45 Pantoprazole (Protonix Tab) 40 mg DAILY@06 PO Last administered on 11/20/18at 06:15; Admin Dose 40 MG; Start 11/19/18 at 06:00 Ticagrelor (Brilinta) 90 mg Q12 PO Last administered on 11/20/18at 09:24; Admin Dose 90 MG; Start 11/19/18 at 09:00 Acetaminophen (Tylenol Tab) 650 mg Q6H PRN PO MILD PAIN(1-3)OR ELEVATED TEMP Last administered on 11/20/18at 01:12; Admin Dose 650 MG; Start 11/18/18 at 23:45 Albuterol/ Ipratropium (Duoneb) 3 ml Q4H RESP THERAPY HHN Last administered on 11/19/18at 01:03; Admin Dose 3 ML; Start 11/19/18 at 01:00 Aspirin (Halfprin) 81 mg DAILY PO Last administered on 11/20/18at 09:24; Admin Dose 81 MG; Start 11/19/18 at 09:00 Atorvastatin Calcium (Lipitor) 80 mg DAILY@21 PO Last administered on 11/19/18at 20:55; Admin Dose 80 MG; Start 11/19/18 at 21:00 Docusate Sodium (Colace) 100 mg Q12H PRN PO CONSTIPATION; Start 11/18/18 at 23:45 Hydralazine HCl (Apresoline) 10 mg Q6H PRN IV ELEVATED SYSTOLIC BP; Start 11/18/18 at 23:45 Acetaminophen/ Hydrocodone Bitart ([place] (5/325)) 1 tab Q6H PRN PO MODERATE PAIN LEVEL 4-6; Start 11/18/18 at 23:45 Levothyroxine Sodium (Synthroid) 150 mcg BEFORE BREAKFAST PO Last administered on 11/20/18at 06:15; Admin Dose 150 MCG; Start 11/19/18 at 07:00 Piperacillin Sod/ Tazobactam Sod 100 ml @ 200 mls/hr Q6 IVPB Last administered on 11/20/18at 12:08; Admin Dose 200 MLS/HR; Start 11/19/18 at 01:00 Assessment/Plan Hospital Course (Demo Recall) IMPRESSION 1. Acute CVA with history of extensive previous CVAs, now with significant agitation and aphasia. Plan: 1. Continue blood pressure management. 2. Physical therapy. 3. Continue aspirin, statin, and Brilinta. 4. Consider de-escalation of antibiotics soon. 5. Speech therapy eval and recs. MO CHRISTOPHER MD, [facility] Nov 20, 2018 13:38
[2018-11-20 14:00] VITALS: BP 149/90; PULSE 80; RESP 18
[2018-11-20 20:00] VITALS: BP 137/93; PULSE 89; RESP 18
[2018-11-20] MEDS: SENNA TAB PO SCH (21:23)
[2018-11-20] MEDS: ATORVASTATIN 80 MG TAB PO SCH (21:23)
[2018-11-21] MEDS: PIPER-TAZO 3.375 GM IV (PMX) 100 ML IVPB SCH ×3 (00:53→12:04)
[2018-11-21] MEDS: ALBUTEROL/IPRATROPIUM (NEB) 3 ML AMP HHN SCH ×6 (01:00→20:15)
[2018-11-21 02:00] VITALS: BP 132/87; PULSE 76; RESP 18
[2018-11-21] MEDS: PANTOPRAZOLE (EC) 40 MG TAB PO SCH (06:02)
[2018-11-21] MEDS: LEVOTHYROXINE 150 MCG TAB PO SCH (06:02)
[2018-11-21 07:30] VITALS: BP 132/91; PULSE 88; RESP 20
[2018-11-21] MEDS: ASPIRIN (EC) 81 MG TAB PO SCH (09:00)
[2018-11-21] MEDS: DOCUSATE SODIUM 100 MG CAP PO SCH ×2 (09:01→21:01)
[2018-11-21] MEDS: NICOTINE (14 MG/24 HR) PATCH TRANSDERM SCH (09:01)
[2018-11-21] MEDS: TICAGRELOR 90 MG TABLET PO SCH ×2 (09:09→21:04)
--- NOTE | 2018-11-21 13:35 | PN ---
Date/Time of Note Date/Time of Note DATE: 11/21/18 TIME: 13:16 Assessment/Plan VTE Prophylaxis Risk score (from Nsg)>0 risk: 2 SCD applied (from Nsg): Yes Pharmacological prophylaxis: other Lines/Catheters IV Catheter Type (from Nrsg): Saline Lock Urinary Cath still in place: No Assessment/Plan Hospital Course S: no new complaints, ambulating with PT PHYSICAL EXAMINATION: GENERAL: Moderately obese gentleman, comfortable at rest, no acute distress. VITAL SIGNS: NECK: Supple. No JVD or lymphadenopathy. CARDIAC: S1, S2, no added sounds or murmurs. CHEST: Diminished air entry bilaterally. ABDOMEN: Soft, nontender. No guarding or rebound. EXTREMITIES: No cyanosis, clubbing, edema. NEUROLOGICAL: Grossly intact. No focal deficits. IMPRESSION 1. Acute CVA with history of extensive previous CVAs, now with mild aphasia. -continue inpatient rehab 2. UTI: -change abx to oral , complete 7 day course 3. RICHIE -repeat labs 4. Tobacco user: nicotine patch 5. hx of cad s/p pci -continue ASA / statin / strict BP control 6. HTN: controlled 7. ?small rectal fissure, ?now healed (pernursing and patient ) -continue stool softener, no further IV abx needs 8. Chronic hypothyroidism: -on home TSH, with good control on recent hospitalization Dispo: continue rehab. Prophylaxis : SCDs (patient also on brilinta and asa) Result Diagram: 11/19/1811611/19/18116 Exam/Review of Systems Exam Vitals Vital Signs Date Temp Pulse Resp B/P (MAP) Pulse Ox O2 O2 Flow FiO2 Time Delivery Rate 11/21/18 81 98 21 09:28 11/21/18 98.2 88 132/91 Room Air 07:30 (105) Intake and Output 11/20/18 11/20/18 11/21/18 1515:00 23:00 07:00 IntakeIntake Total 100 ml 1300 ml 480 ml OutputOutput Total 600 ml BalanceBalance 100 ml 700 ml 480 ml Medications Medication Current Medications Docusate Sodium (Colace) 100 mg BID PO Last administered on 11/21/18at 09:01; Admin Dose 100 MG; Start 11/19/18 at 09:00 Senna (Senokot) 1 tab HS PO Last administered on 11/20/18 21:23; Admin Dose 1 TAB; Start 11/19/18 at 21:00 Magnesium Hydroxide (Milk Of Mag) 30 ml BID PRN PO CONSTIPATION; Start 11/18/18 at 23:30 Lactulose (Enulose) 20 gm DAILY PRN PO CONSTIPATION; Start 11/18/18 at 23:30 Bisacodyl (Dulcolax Supp) 10 mg DAILY PRN [place] CONSTIPATION; Start 11/18/18 at 23:30 Lorazepam (Ativan) 1 mg Q6H PRN IV ANXIETY Last administered on 11/20/18 21:24; Admin Dose 1 MG; Start 11/18/18 at 23:45 Magnesium Hydroxide (Milk Of Mag) 30 ml DAILY PRN PO CONSTIPATION; Start 11/18/18 at 23:45 Morphine Sulfate (morphine) 2 mg Q4H PRN IV SEVERE PAIN LEVEL 7-10 Last administered on 11/19/18 18:13; Admin Dose 2 MG; Start 11/18/18 at 23:45 Nicotine (Nicoderm 14 Mg/ 24hr) 1 patch DAILY TRANSDERM Last administered on 11/21/18 09:01; Admin Dose 1 PATCH; Start 11/19/18 at 09:00 Nitroglycerin (Nitroglycerin (Sl Tab) 0.4 Mg) 1 tab Q5M PRN SL CHEST PAIN; Start 11/18/18 at 23:45 Ondansetron HCl (Zofran Inj) 4 mg Q6H PRN IV NAUSEA AND/OR VOMITING; Start 11/18/18 at 23:45 Pantoprazole (Protonix Tab) 40 mg DAILY@06 PO Last administered on 11/21/18at 06:02; Admin Dose 40 MG; Start 11/19/18 at 06:00 Ticagrelor (Brilinta) 90 mg Q12 PO Last administered on 11/21/18 09:09; Admin Dose 90 MG; Start 11/19/18 at 09:00 Acetaminophen (Tylenol Tab) 650 mg Q6H PRN PO MILD PAIN(1-3)OR ELEVATED TEMP Last administered on 11/20/18 21:24; Admin Dose 650 MG; Start 11/18/18 at 23:45 Albuterol/ Ipratropium (Duoneb) 3 ml Q4H RESP THERAPY HHN Last administered on 11/21/18 09:26; Admin Dose 3 ML; Start 11/19/18 at 01:00 Aspirin (Halfprin) 81 mg DAILY PO Last administered on 11/21/18at 09:00; Admin Dose 81 MG; Start 11/19/18 at 09:00 Atorvastatin Calcium (Lipitor) 80 mg DAILY@21 PO Last administered on 11/20/18at 21:23; Admin Dose 80 MG; Start 11/19/18 at 21:00 Docusate Sodium (Colace) 100 mg Q12H PRN PO CONSTIPATION; Start 11/18/18 at 23:45 Hydralazine HCl (Apresoline) 10 mg Q6H PRN IV ELEVATED SYSTOLIC BP; Start 11/18/18 at 23:45 Acetaminophen/ Hydrocodone Bitart ([place] (5/325)) 1 tab Q6H PRN PO MODERATE PAIN LEVEL 4-6; Start 11/18/18 at 23:45 Levothyroxine Sodium (Synthroid) 150 mcg BEFORE BREAKFAST PO Last administered on 11/21/18at 06:02; Admin Dose 150 MCG; Start 11/19/18 at 07:00 Piperacillin Sod/ Tazobactam Sod 100 ml @ 200 mls/hr Q6 IVPB Last administered on 11/21/18 12:04; Admin Dose 200 MLS/HR; Start 11/19/18 at 01:00 CHANNING HERNANDEZ Nov 21, 2018 13:27
[2018-11-21 14:00] VITALS: BP 125/84; PULSE 81; RESP 20
--- NOTE | 2018-11-21 16:46 | CONS ---
Consult Date/Type/Reason Admit Date/Time Nov 18, 2018 at 22:46 Initial Consult Date Type of Consult Rehab Cross cover note. Date/Time of Note DATE: 11/21/18 TIME: 16:44 Subjective patient remains stable today, less agitated. Objective Vital Signs Date Temp Pulse Resp B/P (MAP) Pulse Ox O2 O2 Flow FiO2 Time Delivery Rate 11/21/18 98.4 81 20 125/84 97 Room Air 14:00 (98) 11/21/18 09:28 Intake and Output 11/20/18 11/20/18 11/21/18 1515:00 23:00 07:00 IntakeIntake Total 100 ml 1300 ml 480 ml OutputOutput Total 600 ml BalanceBalance 100 ml 700 ml 480 ml Exam PHYSICAL EXAMINATION: GENERAL: Moderately obese gentleman, comfortable at rest, no acute distress. VITAL SIGNS: NECK: Supple. No JVD or lymphadenopathy. CARDIAC: S1, S2, no added sounds or murmurs. CHEST: Diminished air entry bilaterally. ABDOMEN: Soft, nontender. No guarding or rebound. EXTREMITIES: No cyanosis, clubbing, edema. NEUROLOGICAL: Grossly intact. No focal deficits. Vent Setting Fraction of Inspired Oxygen pe: 21 Results/Medications Result Diagram: 11/19/187 11/19/18 011 Medications Current Medications Docusate Sodium (Colace) 100 mg BID PO Last administered on 11/21/18at 09:01; Admin Dose 100 MG; Start 11/19/18 at 09:00 Senna (Senokot) 1 tab HS PO Last administered on 11/20/18at 21:23; Admin Dose 1 TAB; Start 11/19/18 at 21:00 Magnesium Hydroxide (Milk Of Mag) 30 ml BID PRN PO CONSTIPATION; Start 11/18/18 at 23:30 Lactulose (Enulose) 20 gm DAILY PRN PO CONSTIPATION; Start 11/18/18 at 23:30 Bisacodyl (Dulcolax Supp) 10 mg DAILY PRN [place] CONSTIPATION; Start 11/18/18 at 23:30 Lorazepam (Ativan) 1 mg Q6H PRN IV ANXIETY Last administered on 11/20/18at 21:24; Admin Dose 1 MG; Start 11/18/18 at 23:45 Magnesium Hydroxide (Milk Of Mag) 30 ml DAILY PRN PO CONSTIPATION; Start at 23:45 Morphine Sulfate (morphine) 2 mg Q4H PRN IV SEVERE PAIN LEVEL 7-10 Last administered on 11/19/18 18:13; Admin Dose 2 MG; Start 11/18/18 at 23:45 Nicotine (Nicoderm 14 Mg/ 24hr) 1 patch DAILY TRANSDERM Last administered on 11/21/18 09:01; Admin Dose 1 PATCH; Start 11/19/18 at 09:00 Nitroglycerin (Nitroglycerin (Sl Tab) 0.4 Mg) 1 tab Q5M PRN SL CHEST PAIN; Start 11/18/18 at 23:45 Ondansetron HCl (Zofran Inj) 4 mg Q6H PRN IV NAUSEA AND/OR VOMITING; Start 11/18/18 at 23:45 Pantoprazole (Protonix Tab) 40 mg DAILY@06 PO Last administered on 11/21/18 06:02; Admin Dose 40 MG; Start 11/19/18 at 06:00 Ticagrelor (Brilinta) 90 mg Q12 PO Last administered on 11/21/18 09:09; Admin Dose 90 MG; Start 11/19/18 at 09:00 Acetaminophen (Tylenol Tab) 650 mg Q6H PRN PO MILD PAIN(1-3)OR ELEVATED TEMP Last administered on 11/20/18 21:24; Admin Dose 650 MG; Start 11/18/18 at 23:45 Albuterol/ Ipratropium (Duoneb) 3 ml Q4H RESP THERAPY HHN Last administered on 11/21/18 09:26; Admin Dose 3 ML; Start 11/19/18 at 01:00 Aspirin (Halfprin) 81 mg DAILY PO Last administered on 11/21/18 09:00; Admin Dose 81 MG; Start 11/19/18 at 09:00 Atorvastatin Calcium (Lipitor) 80 mg DAILY@21 PO Last administered on 11/20/18 21:23; Admin Dose 80 MG; Start 11/19/18 at 21:00 Docusate Sodium (Colace) 100 mg Q12H PRN PO CONSTIPATION; Start 11/18/18 at 23:45 Hydralazine HCl (Apresoline) 10 mg Q6H PRN IV ELEVATED SYSTOLIC BP; Start 11/18/18 at 23:45 Acetaminophen/ Hydrocodone Bitart ([place] (5/325)) 1 tab Q6H PRN PO MODERATE PAIN LEVEL 4-6; Start 11/18/18 at 23:45 Levothyroxine Sodium (Synthroid) 150 mcg BEFORE BREAKFAST PO Last administered on 11/21/18at 06:02; Admin Dose 150 MCG; Start 11/19/18 at 07:00 Amoxicillin/ Clavulanate Potassium (Augmentin) 875 mg BID PO ; Start 11/21/18 at 21:00 Assessment/Plan Hospital Course (Demo Recall) IMPRESSION 1. Acute CVA with history of extensive previous CVAs, now with significant agitation and aphasia. Plan: 1. Continue blood pressure management. 2. Physical therapy. 3. Continue aspirin, statin, and Brilinta. 4. Consider de-escalation of antibiotics soon. 5. Speech therapy eval and recs. 6. Current functional level is min A 50ft with FWW. min A for transfer, min A LB dressing. MO CHRISTOPHER MD, [facility] Nov 21, 2018 16:46
[2018-11-21 20:01] VITALS: BP 149/92; PULSE 74; RESP 18
[2018-11-21] MEDS: ATORVASTATIN 80 MG TAB PO SCH (21:01)
[2018-11-21] MEDS: AMOXICILLIN/CLAV 875 MG TAB PO SCH (21:04)
[2018-11-21] MEDS: SENNA TAB PO SCH (21:04)
[2018-11-21] MEDS: LORAZEPAM 2 MG INJ IV PRN (22:20)
[2018-11-22] MEDS: ALBUTEROL/IPRATROPIUM (NEB) 3 ML AMP HHN SCH ×6 (01:00→21:00)
[2018-11-22 02:00] VITALS: BP 126/80; PULSE 67; RESP 18
[2018-11-22] MEDS: LEVOTHYROXINE 150 MCG TAB PO SCH (06:27)
[2018-11-22] MEDS: PANTOPRAZOLE (EC) 40 MG TAB PO SCH (06:27)
[2018-11-22 07:00] VITALS: BP 139/63; PULSE 95; RESP 18
[2018-11-22] MEDS: DOCUSATE SODIUM 100 MG CAP PO SCH ×2 (08:26→20:31)
[2018-11-22] MEDS: AMOXICILLIN/CLAV 875 MG TAB PO SCH ×2 (08:26→20:31)
[2018-11-22] MEDS: ASPIRIN (EC) 81 MG TAB PO SCH (08:26)
[2018-11-22] MEDS: NICOTINE (14 MG/24 HR) PATCH TRANSDERM SCH (08:27)
[2018-11-22] MEDS: TICAGRELOR 90 MG TABLET PO SCH ×2 (08:27→20:31)
--- NOTE | 2018-11-22 11:41 | PN ---
Date/Time of Note Date/Time of Note DATE: 11/22/18 TIME: 11:41 Assessment/Plan VTE Prophylaxis Risk score (from Ns)>0 risk: 1 SCD applied (from [facility]): Yes Pharmacological prophylaxis: NA/contraindicated Pharm contraindication: low risk/ambulating Lines/Catheters IV Catheter Type (from [facility] [place] Saline Lock Urinary Cath still in place: No Assessment/Plan Hospital Course SUBJECTIVE: Participating with physical therapy work OBJECTIVE: Vital signs-see below PHYSICAL EXAM: Constitutional: Well-developed, adequately built, lying in bed comfortably. Psych: nl mood/affect, no complaints Head: atraumatic, normocephalic Eyes: nl conjunctiva, nl sclera ENMT: mucosa pink and moist, nl external ears & nose Neck: non-tender, supple Respiratory: clear to auscultation, normal air movement Cardiovascular: nl pulses, regular rate and rhythm Gastrointestinal: non-tender, soft, bowel sounds active in all 4 quadrants. Musculoskeletal/extremities: nl extremities to inspection, motor strength equal bilaterally, no focal deficit. Normal pulses,no cyanosis, no edema. Neurological: +forgetful , mild expressive aphasia. Otherwise alert oriented x3. Skin: Healed rectal fissure ,l turgor ASSESSMENT/PLAN: 1. Acute CVA with history of extensive previous CVAs, -With mild aphasia -continue inpatient rehab 2. E. coli UTI -On Augmentin. Will place a stop date 3 tobacco abuse -Nicotine patch 4 hx of cad s/p pci -continue ASA /Brilinta/statin / 5 dyslipidemia -On statin 7. Healed rectal fissure. -Continue monitor. Patient received antibiotic course for this. 8. Hypothyroidism -On Synthroid. O: continue rehab. Prophylaxis : SCDs (patient also on brilinta and asa) Patient was seen in collaboration with . Result Diagram: 11/22/18 0623 11/22/18 0623 Results 24hrs Laboratory Tests Test 11/22/18 06:23 White Blood Count 12.1 H Red Blood Count 4.81 Hemoglobin 14.4 Hematocrit 42.8 Mean Corpuscular Volume 89.0 Mean Corpuscular Hemoglobin 29.9 Mean Corpuscular Hemoglobin Concent 33.6 Red Cell Distribution Width 13.1 Platelet Count 357 Mean Platelet Volume 9.5 Immature Granulocytes % 0.600 H Neutrophils % 68.4 Lymphocytes % 20.9 Monocytes % 7.0 Eosinophils % 2.6 Basophils % 0.5 Nucleated Red Blood Cells % 0.0 Immature Granulocytes # 0.070 H Neutrophils # 8.3 H Lymphocytes # 2.5 Monocytes # 0.9 Eosinophils # 0.3 Basophils # 0.1 Nucleated Red Blood Cells # 0.0 Sodium Level 142 Potassium Level 3.7 Chloride Level 105 Carbon Dioxide Level 24 Anion Gap 13 Blood Urea Nitrogen 12 Creatinine 1.21 Est Glomerular Filtrat Rate mL/min > 60 Glucose Level 102 Calcium Level 9.5 Magnesium Level 2.1 Exam/Review of Systems Exam Vitals Vital Signs Date Temp Pulse Resp B/P (MAP) Pulse Ox O2 O2 Flow FiO2 Time Delivery Rate 11/22/18 98.0 95 18 139/63 97 Room Air 07:00 (88) 11/22/18 02:06 Intake and Output 11/21/18 11/21/18 11/22/18 1515:00 23:00 07:00 IntakeIntake Total 100 ml 980 ml BalanceBalance 100 ml 980 ml Results Results 24hrs Laboratory Tests Test 11/22/18 06:23 White Blood Count 12.1 H Red Blood Count 4.81 Hemoglobin 14.4 Hematocrit 42.8 Mean Corpuscular Volume 89.0 Mean Corpuscular Hemoglobin 29.9 Mean Corpuscular Hemoglobin Concent 33.6 Red Cell Distribution Width 13.1 Platelet Count 357 Mean Platelet Volume 9.5 Immature Granulocytes % 0.600 H Neutrophils % 68.4 Lymphocytes % 20.9 Monocytes % 7.0 Eosinophils % 2.6 Basophils % 0.5 Nucleated Red Blood Cells % 0.0 Immature Granulocytes # 0.070 H Neutrophils # 8.3 H Lymphocytes # 2.5 Monocytes # 0.9 Eosinophils # 0.3 Basophils # 0.1 Nucleated Red Blood Cells # 0.0 Sodium Level 142 Potassium Level 3.7 Chloride Level 105 Carbon Dioxide Level 24 Anion Gap 13 Blood Urea Nitrogen 12 Creatinine 1.21 Est Glomerular Filtrat Rate mL/min > 60 Glucose Level 102 Calcium Level 9.5 Magnesium Level 2.1 Medications Medication Current Medications Docusate Sodium (Colace) 100 mg BID PO Last administered on 11/22/18at 08:26; Admin Dose 100 MG; Start 11/19/18 at 09:00 Senna (Senokot) 1 tab HS PO Last administered on 11/21/18at 21:04; Admin Dose 1 TAB; Start 11/19/18 at 21:00 Magnesium Hydroxide (Milk Of Mag) 30 ml BID PRN PO CONSTIPATION; Start 11/18/18 at 23:30 Lactulose (Enulose) 20 gm DAILY PRN PO CONSTIPATION; Start 11/18/18 at 23:30 Bisacodyl (Dulcolax Supp) 10 mg DAILY PRN [place] CONSTIPATION; Start 11/18/18 at 23:30 Lorazepam (Ativan) 1 mg Q6H PRN IV ANXIETY Last administered on 11/21/18 22:20; Admin Dose 1 MG; Start 11/18/18 at 23:45 Magnesium Hydroxide (Milk Of Mag) 30 ml DAILY PRN PO CONSTIPATION; Start 11/18/18 at 23:45 Morphine Sulfate (morphine) 2 mg Q4H PRN IV SEVERE PAIN LEVEL 7-10 Last admini stered on 11/19/18 18:13; Admin Dose 2 MG; Start 11/18/18 at 23:45 Nicotine (Nicoderm 14 Mg/ 24hr) 1 patch DAILY TRANSDERM Last administered on 11/22/18 08:27; Admin Dose 1 PATCH; Start 11/19/18 at 09:00 Nitroglycerin (Nitroglycerin (Sl Tab) 0.4 Mg) 1 tab Q5M PRN SL CHEST PAIN; Start 11/18/18 at 23:45 Ondansetron HCl (Zofran Inj) 4 mg Q6H PRN IV NAUSEA AND/OR VOMITING; Start 11/18/18 at 23:45 Pantoprazole (Protonix Tab) 40 mg DAILY@06 PO Last administered on 11/22/18 06:27; Admin Dose 40 MG; Start 11/19/18 at 06:00 Ticagrelor (Brilinta) 90 mg Q12 PO Last administered on 11/22/18 08:27; Admin Dose 90 MG; Start 11/19/18 at 09:00 Acetaminophen (Tylenol Tab) 650 mg Q6H PRN PO MILD PAIN(1-3)OR ELEVATED TEMP Last administered on 11/20/18 21:24; Admin Dose 650 MG; Start 11/18/18 at 23:45 Albuterol/ Ipratropium (Duoneb) 3 ml Q4H RESP THERAPY HHN Last administered on 2/18/19at 09:26; Admin Dose 3 ML; Start 11/19/18 at 01:00 Aspirin (Halfprin) 81 mg DAILY PO Last administered on 11/22/18 08:26; Admin Dose 81 MG; Start 11/19/18 at 09:00 Atorvastatin Calcium (Lipitor) 80 mg DAILY@21 PO Last administered on 11/21/18at 21:01; Admin Dose 80 MG; Start 11/19/18 at 21:00 Docusate Sodium (Colace) 100 mg Q12H PRN PO CONSTIPATION; Start 11/18/18 at 23:45 Hydralazine HCl (Apresoline) 10 mg Q6H PRN IV ELEVATED SYSTOLIC BP; Start 11/18/18 at 23:45 Acetaminophen/ Hydrocodone Bitart ([place] (5/325)) 1 tab Q6H PRN PO MODERATE PAIN LEVEL 4-6; Start 11/18/18 at 23:45 Levothyroxine Sodium (Synthroid) 150 mcg BEFORE BREAKFAST PO Last administered on 11/22/18at 06:27; Admin Dose 150 MCG; Start 11/19/18 at 07:00 Amoxicillin/ Clavulanate Potassium (Augmentin) 875 mg BID PO Last administered on 11/22/18 08:26; Admin Dose 875 MG; Start 11/21/18 at 21:00 ROBERT ALVAREZ NP Nov 22, 2018 11:41
[2018-11-22] MEDS: morphine 2 MG INJ IV PRN (12:19)
[2018-11-22 14:00] VITALS: BP 135/87; PULSE 83; RESP 18
[2018-11-22 20:16] VITALS: BP 142/91; PULSE 77; RESP 18
[2018-11-22] MEDS: ATORVASTATIN 80 MG TAB PO SCH (20:28)
[2018-11-22] MEDS: SENNA TAB PO SCH (20:31)
[2018-11-22] MEDS: LORAZEPAM 2 MG INJ IV PRN (20:31)
[2018-11-23] MEDS: ALBUTEROL/IPRATROPIUM (NEB) 3 ML AMP HHN SCH ×6 (01:00→21:00)
[2018-11-23 02:00] VITALS: BP 128/80; PULSE 78; RESP 18
[2018-11-23] MEDS: LEVOTHYROXINE 150 MCG TAB PO SCH (06:27)
[2018-11-23] MEDS: PANTOPRAZOLE (EC) 40 MG TAB PO SCH (06:27)
[2018-11-23] MEDS: ASPIRIN (EC) 81 MG TAB PO SCH (08:19)
[2018-11-23] MEDS: AMOXICILLIN/CLAV 875 MG TAB PO SCH ×2 (08:19→20:48)
[2018-11-23] MEDS: DOCUSATE SODIUM 100 MG CAP PO SCH ×2 (08:20→20:48)
[2018-11-23] MEDS: TICAGRELOR 90 MG TABLET PO SCH ×2 (08:20→20:50)
[2018-11-23] MEDS: NICOTINE (14 MG/24 HR) PATCH TRANSDERM SCH (08:25)
[2018-11-23 08:30] VITALS: BP 144/85; PULSE 88; RESP 18
--- NOTE | 2018-11-23 13:30 | PN ---
Date/Time of Note Date/Time of Note DATE: 11/23/18 TIME: 13:29 Objective Vital Signs Date Temp Pulse Resp B/P (MAP) Pulse Ox O2 O2 Flow FiO2 Time Delivery Rate 11/23/18 98.6 88 18 144/85 97 Room Air 08:30 (104) 11/22/18 21 02:06 Intake and Output 11/22/18 11/22/18 11/23/18 1515:00 23:00 07:00 IntakeIntake Total 1550 ml 100 ml OutputOutput Total 1200 ml BalanceBalance 350 ml 100 ml Exam INTERDISCIPLINARY TEAM CONFERENCE Physical Exam: Pulm- cta Abd- soft BOWEL- Cont BLADDER-Cont SKIN- intact OT- DRESSING- sba BATHING- sba TOILETING- sba PT- BED MOBILITY- s TRANSFERS- s AMBULATION- sba 200 feet SPEECH- COMMUNICATION- max A/P- Interdisciplinary team conference held today. Please see interdisciplinary sheet. Working toward d.c. on 11/25 with post discharge follow up of physical therapy, occupational therapy. Results/Medications Result Diagram: 11/22/1862211/22/18622 Medications Current Medications Docusate Sodium (Colace) 100 mg BID PO Last administered on 11/23/18at 08:20; Admin Dose 100 MG; Start 11/19/18 at 09:00 Senna (Senokot) 1 tab HS PO Last administered on 11/22/18 20:31; Admin Dose 1 TAB; Start 11/19/18 at 21:00 Magnesium Hydroxide (Milk Of Mag) 30 ml BID PRN PO CONSTIPATION; Start 11/18/18 at 23:30 Lactulose (Enulose) 20 gm DAILY PRN PO CONSTIPATION; Start 11/18/18 at 23:30 Bisacodyl (Dulcolax Supp) 10 mg DAILY PRN [place] CONSTIPATION; Start 11/18/18 at 23:30 Lorazepam (Ativan) 1 mg Q6H PRN IV ANXIETY Last administered on 11/22/18at 20:31; Admin Dose 1 MG; Start 11/18/18 at 23:45 Magnesium Hydroxide (Milk Of Mag) 30 ml DAILY PRN PO CONSTIPATION; Start 11/18/18 at 23:45 Nicotine (Nicoderm 14 Mg/ 24hr) 1 patch DAILY TRANSDERM Last administered on 11/23/18at 08:25; Admin Dose 1 PATCH; Start 11/19/18 at 09:00 Nitroglycerin (Nitroglycerin (Sl Tab) 0.4 Mg) 1 tab Q5M PRN SL CHEST PAIN; Start 11/18/18 at 23:45 Ondansetron HCl (Zofran Inj) 4 mg Q6H PRN IV NAUSEA AND/OR VOMITING; Start 11/18/18 at 23:45 Pantoprazole (Protonix Tab) 40 mg DAILY@06 PO Last administered on 11/23/18at 06:27; Admin Dose 40 MG; Start 11/19/18 at 06:00 Ticagrelor (Brilinta) 90 mg Q12 PO Last administered on 11/23/18 08:20; Admin Dose 90 MG; Start 11/19/18 at 09:00 Acetaminophen (Tylenol Tab) 650 mg Q6H PRN PO MILD PAIN(1-3)OR ELEVATED TEMP L ast administered on 11/20/18at 21:24; Admin Dose 650 MG; Start 11/18/18 at 23:45 Albuterol/ Ipratropium (Duoneb) 3 ml Q4H RESP THERAPY HHN Last administered on 11/21/18 09:26; Admin Dose 3 ML; Start 11/19/18 at 01:00 Aspirin (Halfprin) 81 mg DAILY PO Last administered on 11/23/18 08:19; Admin Dose 81 MG; Start 11/19/18 at 09:00 Atorvastatin Calcium (Lipitor) 80 mg DAILY@21 PO Last administered on 11/22/18at 20:28; Admin Dose 80 MG; Start 11/19/18 at 21:00 Docusate Sodium (Colace) 100 mg Q12H PRN PO CONSTIPATION; Start 11/18/18 at 23:45 Hydralazine HCl (Apresoline) 10 mg Q6H PRN IV ELEVATED SYSTOLIC BP; Start 11/18/18 at 23:45 Acetaminophen/ Hydrocodone Bitart ([place] (5/325)) 1 tab Q6H PRN PO MODERATE PAIN LEVEL 4-6; Start 11/18/18 at 23:45 Levothyroxine Sodium (Synthroid) 150 mcg BEFORE BREAKFAST PO Last administered on 11/23/18 06:27; Admin Dose 150 MCG; Start 11/19/18 at 07:00 Amoxicillin/ Clavulanate Potassium (Augmentin) 875 mg BID PO Last administered on 11/23/18at 08:19; Admin Dose 875 MG; Start 11/21/18 at 21:00; Stop 11/30/18 at 20:59 SAIGE DRIVER MD Nov 23, 2018 13:30
[2018-11-23] MEDS: LORAZEPAM 2 MG INJ IV PRN ×2 (14:07→21:32)
--- NOTE | 2018-11-23 14:26 | PN ---
Date/Time of Note Date/Time of Note DATE: 11/23/18 TIME: 14:25 Assessment/Plan VTE Prophylaxis Risk score (from Ns)>0 risk: 1 SCD applied (from Ns): Yes Pharmacological prophylaxis: NA/contraindicated Pharm contraindication: low risk/ambulating Lines/Catheters IV [facility] Type (from [email or web address] Saline Lock Urinary Cath still in place: No Assessment/Plan Hospital Course SUBJECTIVE: Participating with physical therapy work OBJECTIVE: Vital signs-see below PHYSICAL EXAM: Constitutional: Well-developed, adequately built, lying in bed comfortably. Psych: nl mood/affect, no complaints Head: atraumatic, normocephalic Eyes: nl conjunctiva, nl sclera ENMT: mucosa pink and moist, nl external ears & nose Neck: non-tender, supple Respiratory: clear to auscultation, normal air movement Cardiovascular: nl pulses, regular rate and rhythm Gastrointestinal: non-tender, soft, bowel sounds active in all 4 quadrants. Musculoskeletal/extremities: nl extremities to inspection, motor strength equal bilaterally, no focal deficit. Normal pulses,no cyanosis, no edema. Neurological: +forgetful , mild expressive aphasia. Otherwise alert oriented x3. Skin: Healed rectal fissure ,l turgor ASSESSMENT/PLAN: 1. Acute CVA with history of extensive previous CVAs, -With mild aphasia -continue inpatient rehab 2. E. coli UTI -On Augmentin. Will place a stop date 3 tobacco abuse -Nicotine patch 4 hx of cad s/p pci -continue ASA /Brilinta/statin / 5 dyslipidemia -On statin 7. Healed rectal fissure. -Continue monitor. Patient received antibiotic course for this. 8. Hypothyroidism -On Synthroid. O: continue rehab. Prophylaxis : SCDs (patient also on brilinta and asa) Patient was seen in collaboration with . Result Diagram: 11/22/1862211/22/18622 Exam/Review of Systems Exam Vitals Vital Signs Date Temp Pulse Resp B/P (MAP) Pulse Ox O2 O2 Flow FiO2 Time Delivery Rate 11/23/18 98.6 88 18 144/85 97 Room Air 08:30 (104) 11/22/18 21 02:06 Intake and Output 11/22/18 11/22/18 11/23/18 1515:00 23:00 07:00 IntakeIntake Total 1550 ml 100 ml OutputOutput Total 1200 ml BalanceBalance 350 ml 100 ml Medications Medication Current Medications Docusate Sodium (Colace) 100 mg BID PO Last administered on 11/23/18 08:20; Admin Dose 100 MG; Start 11/19/18 at 09:00 Senna (Senokot) 1 tab HS PO Last administered on 11/22/18at 20:31; Admin Dose 1 TAB; Start 11/19/18 at 21:00 Magnesium Hydroxide (Milk Of Mag) 30 ml BID PRN PO CONSTIPATION; Start 11/18/18 at 23:30 Lactulose (Enulose) 20 gm DAILY PRN PO CONSTIPATION; Start 11/18/18 at 23:30 Bisacodyl (Dulcolax Supp) 10 mg DAILY PRN [place] CONSTIPATION; Start 11/18/18 at 23:30 Lorazepam (Ativan) 1 mg Q6H PRN IV ANXIETY Last administered on 11/23/18at 14:07; Admin Dose 1 MG; Start 11/18/18 at 23:45 Magnesium Hydroxide (Milk Of Mag) 30 ml DAILY PRN PO CONSTIPATION; Start 11/18/18 at 23:45 Nicotine (Nicoderm 14 Mg/ 24hr) 1 patch DAILY TRANSDERM Last administered on 11/23/18 08:25; Admin Dose 1 PATCH; Start 11/19/18 at 09:00 Nitroglycerin (Nitroglycerin (Sl Tab) 0.4 Mg) 1 tab Q5M PRN SL CHEST PAIN; Start 11/18/18 at 23:45 Ondansetron HCl (Zofran Inj) 4 mg Q6H PRN IV NAUSEA AND/OR VOMITING; Start 11/18/18 at 23:45 Pantoprazole (Protonix Tab) 40 mg DAILY@06 PO Last administered on 11/23/18at 06:27; Admin Dose 40 MG; Start 11/19/18 at 06:00 Ticagrelor (Brilinta) 90 mg Q12 PO Last administered on 11/23/18at 08:20; Admin Dose 90 MG; Start 11/19/18 at 09:00 Acetaminophen (Tylenol Tab) 650 mg Q6H PRN PO MILD PAIN(1-3)OR ELEVATED TEMP Last administered on 11/20/18at 21:24; Admin Dose 650 MG; Start 11/18/18 at 23:45 Albuterol/ Ipratropium (Duoneb) 3 ml Q4H RESP THERAPY HHN Last administered on 11/21/18 09:26; Admin Dose 3 ML; Start 11/19/18 at 01:00 Aspirin (Halfprin) 81 mg DAILY PO Last administered on 11/23/18 08:19; Admin Dose 81 MG; Start 11/19/18 at 09:00 Atorvastatin Calcium (Lipitor) 80 mg DAILY@21 PO Last administered on 11/22/18at 20:28; Admin Dose 80 MG; Start 11/19/18 at 21:00 Docusate Sodium (Colace) 100 mg Q12H PRN PO CONSTIPATION; Start 11/18/18 at 23:45 Hydralazine HCl (Apresoline) 10 mg Q6H PRN IV ELEVATED SYSTOLIC BP; Start 11/18/18 at 23:45 Acetaminophen/ Hydrocodone Bitart ([place] (5/325)) 1 tab Q6H PRN PO MODERATE PAIN LEVEL 4-6; Start 11/18/18 at 23:45 Levothyroxine Sodium (Synthroid) 150 mcg BEFORE BREAKFAST PO Last administered on 11/23/18at 06:27; Admin Dose 150 MCG; Start 11/19/18 at 07:00 Amoxicillin/ Clavulanate Potassium (Augmentin) 875 mg BID PO Last administered on 11/23/18 08:19; Admin Dose 875 MG; Start 11/21/18 at 21:00; Stop 11/30/18 at 20:59 ROBERT ALVAREZ NP Nov 23, 2018 14:26
[2018-11-23] MEDS: HYDROCODONE/APAP (5/325) TAB PO PRN (18:32)
[2018-11-23 19:34] VITALS: BP 142/88; PULSE 82; RESP 18
[2018-11-23] MEDS: SENNA TAB PO SCH (20:48)
[2018-11-23] MEDS: ATORVASTATIN 80 MG TAB PO SCH (20:50)
[2018-11-24] MEDS: ALBUTEROL/IPRATROPIUM (NEB) 3 ML AMP HHN SCH ×6 (01:00→21:00)
[2018-11-24 02:00] VITALS: BP 136/82; PULSE 77; RESP 18
[2018-11-24] MEDS: LEVOTHYROXINE 150 MCG TAB PO SCH (06:34)
[2018-11-24] MEDS: PANTOPRAZOLE (EC) 40 MG TAB PO SCH (06:34)
[2018-11-24 07:30] VITALS: BP 123/79; PULSE 80; RESP 18
[2018-11-24] MEDS: DOCUSATE SODIUM 100 MG CAP PO SCH ×2 (08:34→21:54)
[2018-11-24] MEDS: AMOXICILLIN/CLAV 875 MG TAB PO SCH ×2 (08:34→21:54)
[2018-11-24] MEDS: ASPIRIN (EC) 81 MG TAB PO SCH (08:34)
[2018-11-24] MEDS: TICAGRELOR 90 MG TABLET PO SCH ×2 (08:35→21:55)
[2018-11-24] MEDS: NICOTINE (14 MG/24 HR) PATCH TRANSDERM SCH (08:35)
[2018-11-24] MEDS ORDERED: LORAZEPAM 1 MG TAB PO PRN (12:00)
--- NOTE | 2018-11-24 12:34 | PN ---
Date/Time of Note Date/Time of Note DATE: 11/24/18 TIME: 12:33 Assessment/Plan VTE Prophylaxis Risk score (from Ns)>0 risk: 1 SCD applied (from [facility]): Yes Pharmacological prophylaxis: NA/contraindicated Pharm contraindication: other (on brilinta/asa) Lines/Catheters IV C[facility]ter Type (from [facility]): Saline Lock Urinary Cath still in place: No Assessment/Plan Hospital Course SUBJECTIVE: Participating with physical therapy work OBJECTIVE: Vital signs-see below PHYSICAL EXAM: Constitutional: Well-developed, adequately built, lying in bed comfortably. Psych: nl mood/affect, no complaints Head: atraumatic, normocephalic Eyes: nl conjunctiva, nl sclera ENMT: mucosa pink and moist, nl external ears & nose Neck: non-tender, supple Respiratory: clear to auscultation, normal air movement Cardiovascular: nl pulses, regular rate and rhythm Gastrointestinal: non-tender, soft, bowel sounds active in all 4 quadrants. Musculoskeletal/extremities: nl extremities to inspection, motor strength equal bilaterally, no focal deficit. Normal pulses,no cyanosis, no edema. Neurological: +forgetful , mild expressive aphasia. Otherwise alert oriented x3. Skin: Healed rectal fissure ,l turgor ASSESSMENT/PLAN: 1. Acute CVA with history of extensive previous CVAs, -With mild aphasia -continue inpatient rehab 2. E. coli UTI -On Augmentin. Will place a stop date 3 tobacco abuse -Nicotine patch 4 hx of cad s/p pci -continue ASA /Brilinta/statin / 5 dyslipidemia -On statin 7. Healed rectal fissure. -Continue monitor. Patient received antibiotic course for this. 8. Hypothyroidism -On Synthroid. O: continue rehab. Prophylaxis : SCDs (patient also on Brilinta and asa) Patient was seen in collaboration with . Result Diagram: 11/22/1862211/22/18622 Exam/Review of Systems Exam Vitals Vital Signs Date Temp Pulse Resp B/P (MAP) Pulse Ox O2 O2 Flow FiO2 Time Delivery Rate 11/24/18 97.8 80 18 123/79 97 Room Air 07:30 (94) 11/22/18 21 02:06 Intake and Output 11/23/18 11/23/18 11/24/18 1515:00 23:00 07:00 IntakeIntake Total 1080 ml 100 ml OutputOutput Total 500 ml BalanceBalance 580 ml 100 ml Medications Medication Current Medications Docusate Sodium (Colace) 100 mg BID PO Last administered on 11/24/18 08:34; Admin Dose 100 MG; Start 11/19/18 at 09:00 Senna (Senokot) 1 tab HS PO Last administered on 11/23/18 20:48; Admin Dose 1 TAB; Start 11/19/18 at 21:00 Magnesium Hydroxide (Milk Of Mag) 30 ml BID PRN PO CONSTIPATION; Start 11/18/18 at 23:30 Lactulose (Enulose) 20 gm DAILY PRN PO CONSTIPATION; Start 11/18/18 at 23:30 Bisacodyl (Dulcolax Supp) 10 mg DAILY PRN [place] CONSTIPATION; Start 11/18/18 at 23:30 Magnesium Hydroxide (Milk Of Mag) 30 ml DAILY PRN PO CONSTIPATION; Start 11/18/18 at 23:45 Nicotine (Nicoderm 14 Mg/ 24hr) 1 patch DAILY TRANSDERM Last administered on 11/24/18 08:35; Admin Dose 1 PATCH; Start 11/19/18 at 09:00 Nitroglycerin (Nitroglycerin (Sl Tab) 0.4 Mg) 1 tab Q5M PRN SL CHEST PAIN; Start 11/18/18 at 23:45 Ondansetron HCl (Zofran Inj) 4 mg Q6H PRN IV NAUSEA AND/OR VOMITING; Start 11/18/18 at 23:45 Pantoprazole (Protonix Tab) 40 mg DAILY@06 PO Last administered on 11/24/18 06:34; Admin Dose 40 MG; Start 11/19/18 at 06:00 Ticagrelor (Brilinta) 90 mg Q12 PO Last administered on 11/24/18 08:35; Admin Dose 90 MG; Start 11/19/18 at 09:00 Acetaminophen (Tylenol Tab) 650 mg Q6H PRN PO MILD PAIN(1-3)OR ELEVATED TEMP Last administered on 11/20/18 21:24; Admin Dose 650 MG; Start 11/18/18 at 23:45 Albuterol/ Ipratropium (Duoneb) 3 ml Q4H RESP THERAPY HHN Last administered on 11/21/18 09:26; Admin Dose 3 ML; Start 11/19/18 at 01:00 Aspirin (Halfprin) 81 mg DAILY PO Last administered on 11/24/18 08:34; Admin Dose 81 MG; Start 11/19/18 at 09:00 Atorvastatin Calcium (Lipitor) 80 mg DAILY@21 PO Last administered on 11/23/18at 20:50; Admin Dose 80 MG; Start 11/19/18 at 21:00 Docusate Sodium (Colace) 100 mg Q12H PRN PO CONSTIPATION; Start 11/18/18 at 23:45 Hydralazine HCl (Apresoline) 10 mg Q6H PRN IV ELEVATED SYSTOLIC BP; Start 11/18/18 at 23:45 Acetaminophen/ Hydrocodone Bitart ([place] (5/325)) 1 tab Q6H PRN PO MODERATE PAIN LEVEL 4-6 Last administered on 11/23/18at 18:32; Admin Dose 1 TAB; Start 11/18/18 at 23:45 Levothyroxine Sodium (Synthroid) 150 mcg BEFORE BREAKFAST PO Last administered on 11/24/18at 06:34; Admin Dose 150 MCG; Start 11/19/18 at 07:00 Amoxicillin/ Clavulanate Potassium (Augmentin) 875 mg BID PO Last administered on 11/24/18 08:34; Admin Dose 875 MG; Start 11/21/18 at 21:00; Stop 11/30/18 at 20:59 Lorazepam (Ativan) 1 mg Q8 PRN PO ANXIETY; Start 11/24/18 at 12:00 ROBERT ALVAREZ NP Nov 24, 2018 12:34
--- NOTE | 2018-11-24 13:26 | PN ---
Date/Time of Note Date/Time of Note DATE: 11/24/18 TIME: 13:23 Subjective Discussion with patient's daughter today regarding dc plannin. daughter reports family working on supervised environment Objective Vital Signs Date Temp Pulse Resp B/P (MAP) Pulse Ox O2 O2 Flow FiO2 Time Delivery Rate 11/24/18 97.8 80 18 123/79 97 Room Air 07:30 (94) 11/22/18 02:06 Intake and Output 11/23/18 11/23/18 11/24/18 1515:00 23:00 07:00 IntakeIntake Total 1080 ml 100 ml OutputOutput Total 500 ml BalanceBalance 580 ml 100 ml Exam pulm-cta abd-soft s ambulation Results/Medications Result Diagram: 11/22/1862211/22/18622 Medications Current Medications Docusate Sodium (Colace) 100 mg BID PO Last administered on 11/24/18at 08:34; Admin Dose 100 MG; Start 11/19/18 at 09:00 Senna (Senokot) 1 tab HS PO Last administered on 11/23/18at 20:48; Admin Dose 1 TAB; Start 11/19/18 at 21:00 Magnesium Hydroxide (Milk Of Mag) 30 ml BID PRN PO CONSTIPATION; Start 11/18/18 at 23:30 Lactulose (Enulose) 20 gm DAILY PRN PO CONSTIPATION; Start 11/18/18 at 23:30 Bisacodyl (Dulcolax Supp) 10 mg DAILY PRN [place] CONSTIPATION; Start 11/18/18 at 23:30 Magnesium Hydroxide (Milk Of Mag) 30 ml DAILY PRN PO CONSTIPATION; Start 11/18/18 at 23:45 Nicotine (Nicoderm 14 Mg/ 24hr) 1 patch DAILY TRANSDERM Last administered on 11/24/18at 08:35; Admin Dose 1 PATCH; Start 11/19/18 at 09:00 Nitroglycerin (Nitroglycerin (Sl Tab) 0.4 Mg) 1 tab Q5M PRN SL CHEST PAIN; Start 11/18/18 at 23:45 Ondansetron HCl (Zofran Inj) 4 mg Q6H PRN IV NAUSEA AND/OR VOMITING; Start 11/18/18 at 23:45 Pantoprazole (Protonix Tab) 40 mg DAILY@06 PO Last administered on 11/24/18at 06:34; Admin Dose 40 MG; Start 11/19/18 at 06:00 Ticagrelor (Brilinta) 90 mg Q12 PO Last administered on 11/24/18at 08:35; Admin Dose 90 MG; Start 11/19/18 at 09:00 Acetaminophen (Tylenol Tab) 650 mg Q6H PRN PO MILD PAIN(1-3)OR ELEVATED TEMP Last administered on 11/20/18at 21:24; Admin Dose 650 MG; Start 11/18/18 at 23:45 Albuterol/ Ipratropium (Duoneb) 3 ml Q4H RESP THERAPY HHN Last administered on 11/21/18 09:26; Admin Dose 3 ML; Start 11/19/18 at 01:00 Aspirin (Halfprin) 81 mg DAILY PO Last administered on 11/24/18 08:34; Admin Dose 81 MG; Start 11/19/18 at 09:00 Atorvastatin Calcium (Lipitor) 80 mg DAILY@21 PO Last administered on 11/23/18at 20:50; Admin Dose 80 MG; Start 11/19/18 at 21:00 Docusate Sodium (Colace) 100 mg Q12H PRN PO CONSTIPATION; Start 11/18/18 at 23:45 Hydralazine HCl (Apresoline) 10 mg Q6H PRN IV ELEVATED SYSTOLIC BP; Start 11/18/18 at 23:45 Acetaminophen/ Hydrocodone Bitart ([place] (5/325)) 1 tab Q6H PRN PO MODERATE PAIN LEVEL 4-6 Last administered on 11/23/18at 18:32; Admin Dose 1 TAB; Start 11/18/18 at 23:45 Levothyroxine Sodium (Synthroid) 150 mcg BEFORE BREAKFAST PO Last administered on 11/24/18at 06:34; Admin Dose 150 MCG; Start 11/19/18 at 07:00 Amoxicillin/ Clavulanate Potassium (Augmentin) 875 mg BID PO Last administered on 11/24/18at 08:34; Admin Dose 875 MG; Start 11/21/18 at 21:00; Stop 11/30/18 at 20:59 Lorazepam (Ativan) 0.5 mg Q6H PRN PO ANXIETY; Start 11/24/18 at 13:00 Lorazepam (Ativan) 1 mg HS PO ; Start 11/24/18 at 21:00 Assessment/Plan Additional Assessment/Plan Rehab- L CVA with R manuelito Continue current rehab program. DC planning in progress. Increased speech therapy to focus on aphasia Hypertension- CAD/WA SAIGE DRIVER MD Nov 24, 2018 13:26
[2018-11-24] MEDS: LORAZEPAM 0.5 MG TAB PO PRN (13:34)
[2018-11-24 14:00] VITALS: BP 118/71; PULSE 92; RESP 20
[2018-11-24 20:10] VITALS: BP 155/103; PULSE 110; RESP 20
[2018-11-24] MEDS ORDERED: LORAZEPAM 1 MG TAB PO SCH (21:00)
[2018-11-24 21:30] VITALS: BP 146/82; PULSE 85; RESP 18
[2018-11-24] MEDS: SENNA TAB PO SCH (21:54)
[2018-11-24] MEDS: ATORVASTATIN 80 MG TAB PO SCH (21:54)
[2018-11-25] MEDS: ALBUTEROL/IPRATROPIUM (NEB) 3 ML AMP HHN SCH ×3 (01:00→09:00)
[2018-11-25 02:26] VITALS: BP 155/86; PULSE 77; RESP 18
[2018-11-25] MEDS: LORAZEPAM 0.5 MG TAB PO PRN ×2 (04:58→11:30)
[2018-11-25] MEDS: LEVOTHYROXINE 150 MCG TAB PO SCH (06:23)
[2018-11-25] MEDS: PANTOPRAZOLE (EC) 40 MG TAB PO SCH (06:23)
[2018-11-25] MEDS: AMOXICILLIN/CLAV 875 MG TAB PO SCH (08:42)
[2018-11-25] MEDS: NICOTINE (14 MG/24 HR) PATCH TRANSDERM SCH (08:43)
[2018-11-25] MEDS: DOCUSATE SODIUM 100 MG CAP PO SCH (08:43)
[2018-11-25] MEDS: HYDROCODONE/APAP (5/325) TAB PO PRN (08:43)
[2018-11-25] MEDS: ASPIRIN (EC) 81 MG TAB PO SCH (08:44)
[2018-11-25] MEDS: TICAGRELOR 90 MG TABLET PO SCH (08:45)
--- NOTE | 2018-11-25 12:34 | PN ---
Date/Time of Note Date/Time of Note DATE: 11/25/18 TIME: 12:33 Assessment/Plan VTE Prophylaxis Risk score (from Ns)>0 risk: 1 SCD applied (from Ns): Yes Pharmacological prophylaxis: NA/contraindicated Pharm contraindication: low risk/ambulating Lines/Catheters [facility] Saline Lock Urinary Cath still in place: No Assessment/Plan Hospital Course SUBJECTIVE: For discharge today OBJECTIVE: Vital signs-see below PHYSICAL EXAM: Constitutional: Well-developed, adequately built, lying in bed comfortably. Psych: nl mood/affect, no complaints Head: atraumatic, normocephalic Eyes: nl conjunctiva, nl sclera ENMT: mucosa pink and moist, nl external ears & nose Neck: non-tender, supple Respiratory: clear to auscultation, normal air movement Cardiovascular: nl pulses, regular rate and rhythm Gastrointestinal: non-tender, soft, bowel sounds active in all 4 quadrants. Musculoskeletal/extremities: nl extremities to inspection, motor strength equal bilaterally, no focal deficit. Normal pulses,no cyanosis, no edema. Neurological: +forgetful , mild expressive aphasia. Otherwise alert oriented x3. Skin: Healed rectal fissure ,l turgor ASSESSMENT/PLAN: 1. Acute CVA with history of extensive previous CVAs, -With mild aphasia-improved significantly -continue inpatient rehab 2. E. coli UTI -On Augmentin W/ stop date placed 3 tobacco abuse -Nicotine patch 4 hx of cad s/p pci -continue ASA /Brilinta/statin / 5 dyslipidemia -On statin 7. Healed rectal fissure. -Continue monitor. Patient received antibiotic course for this. 8. Hypothyroidism -On Synthroid. O: continue rehab. Prophylaxis : SCDs (patient also on Brilinta and asa) Patient was seen in collaboration with Result Diagram: 11/22/18 0623 11/22/18 06 Exam/Review of Systems Exam Vitals Vital Signs Date Temp Pulse Resp B/P (MAP) Pulse Ox O2 O2 Flow FiO2 Time Delivery Rate 11/25/18 98.1 77 18 155/86 97 Room Air 02:26 (109) 11/22/18 21 02:06 Intake and Output 11/24/18 11/24/18 11/25/18 1515:00 23:00 07:00 IntakeIntake Total 1060 ml 120 ml BalanceBalance 1060 ml 120 ml Medications Medication Current Medications Docusate Sodium (Colace) 100 mg BID PO Last administered on 11/25/18 08:43; Admin Dose 100 MG; Start 11/19/18 at 09:00 Senna (Senokot) 1 tab HS PO Last administered on 11/24/18 21:54; Admin Dose 1 TAB; Start 11/19/18 at 21:00 Magnesium Hydroxide (Milk Of Mag) 30 ml BID PRN PO CONSTIPATION; Start 11/18/18 at 23:30 Lactulose (Enulose) 20 gm DAILY PRN PO CONSTIPATION; Start 11/18/18 at 23:30 Bisacodyl (Dulcolax Supp) 10 mg DAILY PRN [place] CONSTIPATION; Start 11/18/18 at 23:30 Magnesium Hydroxide (Milk Of Mag) 30 ml DAILY PRN PO CONSTIPATION; Start 11/18/18 at 23:45 Nicotine (Nicoderm 14 Mg/ 24hr) 1 patch DAILY TRANSDERM Last administered on 11/25/18 08:43; Admin Dose 1 PATCH; Start 11/19/18 at 09:00 Nitroglycerin (Nitroglycerin (Sl Tab) 0.4 Mg) 1 tab Q5M PRN SL CHEST PAIN; Start 11/18/18 at 23:45 Ondansetron HCl (Zofran Inj) 4 mg Q6H PRN IV NAUSEA AND/OR VOMITING; Start 11/18/18 at 23:45 Pantoprazole (Protonix Tab) 40 mg DAILY@06 PO Last administered on 11/25/18 06:23; Admin Dose 40 MG; Start 11/19/18 at 06:00 Ticagrelor (Brilinta) 90 mg Q12 PO Last administered on 11/25/18 08:45; Admin Dose 90 MG; Start 11/19/18 at 09:00 Acetaminophen (Tylenol Tab) 650 mg Q6H PRN PO MILD PAIN(1-3)OR ELEVATED TEMP Last administered on 11/20/18 21:24; Admin Dose 650 MG; Start 11/18/18 at 23:45 Albuterol/ Ipratropium (Duoneb) 3 ml Q4H RESP THERAPY HHN Last administered on 11/21/18 09:26; Admin Dose 3 ML; Start 11/19/18 at 01:00 Aspirin (Halfprin) 81 mg DAILY PO Last administered on 11/25/18 08:44; Admin Dose 81 MG; Start 11/19/18 at 09:00 Atorvastatin Calcium (Lipitor) 80 mg DAILY@21 PO Last administered on 11/24/18 21:54; Admin Dose 80 MG; Start 11/19/18 at 21:00 Docusate Sodium (Colace) 100 mg Q12H PRN PO CONSTIPATION; Start 11/18/18 at 23:45 Hydralazine HCl (Apresoline) 10 mg Q6H PRN IV ELEVATED SYSTOLIC BP; Start 11/18/18 at 23:45 Acetaminophen/ Hydrocodone Bitart ([place] (5/325)) 1 tab Q6H PRN PO MODERATE RAE N LEVEL 4-6 Last administered on 11/25/18 08:43; Admin Dose 1 TAB; Start 11/18/18 at 23:45 Levothyroxine Sodium (Synthroid) 150 mcg BEFORE BREAKFAST PO Last administered on 11/25/18 06:23; Admin Dose 150 MCG; Start 11/19/18 at 07:00 Amoxicillin/ Clavulanate Potassium (Augmentin) 875 mg BID PO Last administered on 11/25/18 08:42; Admin Dose 875 MG; Start 11/21/18 at 21:00; Stop 11/30/18 at 20:59 Lorazepam (Ativan) 0.5 mg Q6H PRN PO ANXIETY Last administered on 11/25/18 11:30; Admin Dose 0.5 MG; Start 11/24/18 at 13:00 Lorazepam (Ativan) 1 mg HS PO Last administered on 11/24/18 21:56; Admin Dose 1 MG; Start 11/24/18 at 21:00 ROBERT ALVAREZ NP Nov 25, 2018 12:34
--- NOTE | 2018-11-25 12:38 | DS ---
Date/Time of Note Date/Time of Note DATE: 11/25/18 TIME: 12:35 Discharge Summary Admission/Discharge Info Admit Date/Time Nov 18, 2018 at 22:46 Discharge Date/Time Discharge Diagnosis 1. Left cerebrovascular accident/ischemic infarct involving the temporoparietal occipital lobes in a right-handed patient. 2. Aphasia, expressive greater than receptive 3. Hypertension. 4. Coronary artery disease, history of CA, stenting. 5. 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 6. Improvements in self care, mobility, and some improvement in communication Patient Condition: Good Hospital Course The patient was admitted for comprehensive interdisciplinary rehabilitation and made steady functional gains from a Mod/min level to a S/CA level for self care tasks and mobility including ambulating over 200 feet without the use of an assistive device. Patient with notable expressive aphasia, and family education and training performed. Patient is being discharged home with the recommendation of home health Speech , OT PT follow up. The DC meds are per the medication reconciliation sheet. The discharge equipment recommendations include: FWW, BS C, shower chair. The patient will follow up with PMD upon DC. Home Meds Reported Medications Levothyroxine Sodium* (Levothyroxine Sodium*) 150 Mcg Tablet, 150 MCG PO BEFORE BREAKFAST, #30 TAB 11/16/18 Ticagrelor* (Brilinta*) 90 Mg Tablet, 90 MG PO Q12, TAB 11/16/18 Amlodipine Besylate* (Amlodipine Besylate*) 10 Mg Tablet, 10 MG PO DAILY, #30 TAB 11/16/18 Atorvastatin* (Atorvastatin*) 80 Mg Tablet, 80 MG PO HS, TAB 07/05/15 Primary Care Provider Not On Staff Doctor SAIGE DRIVER MD Nov 25, 2018 12:38
[2018-11-25 14:00] VITALS: BP 134/92; RESP 18
--- NOTE | 2018-11-25 14:22 | CONS ---
Assessment/Plan Assessment/Plan Hospital Course 58 yo M with Hx of CVA, HTN, CAD...and medication noncompliance... who presents for evaluation of ams, slurred speech, gait instability. MRI Brain confirmed acute infarcts in the L posterior parietal, L occipitoparietal, and posterior L frontal lobes.. CTA H/N showed occlusion of the M2/M3 branches of the L MCA Echo is unrevealing. P: Cont ASA/Lipitor for secondary stroke prevention BP and other medical management per primary Reorient as necessary Limit sedating medications where possible PT/OT/ST per pump installer Will follow as needed; please call w ?s Consultation Date/Type/Reason Admit Date/Time Nov 18, 2018 at 22:46 Type of Consult Neurology Reason for Consultation stroke follow up Requesting Provider: MO CHRISTOPHER MD, [facility] Date/Time of Note DATE: 11/25/18 TIME: 14:22 24 HR Interval Summary Free Text/Dictation Continues ARU care Exam Vital Signs Vitals Vital Signs Date Temp Pulse Resp B/P (MAP) Pulse Ox O2 O2 Flow FiO2 Time Delivery Rate 11/25/18 98.1 77 18 155/86 97 Room Air 02:26 (109) 11/22/18 21 02:06 Intake and Output 11/24/18 11/24/18 11/25/18 1515:00 23:00 07:00 IntakeIntake Total 1060 ml 120 ml BalanceBalance 1060 ml 120 ml VETO KARIMI NP Nov 25, 2018 14:22 RAMON LARSON Nov 25, 2018 16:07
== END 2018-11-25 15:00 | disposition home health service (06) | DRG 57 ==
LOC: VRC 22:46
PROVIDERS: ADMIT Physical Medicine & Rehabilitation; ATTEND Internal Medicine Pulmonary Disease
PROC: F07Z5FZ Bed Mobility Treatment using Assistive, Adaptive, Supportive or Protective Equipment (ICD-10-PCS; principal; 2018-11-19)
PROC: F07Z8FZ Transfer Training Treatment using Assistive, Adaptive, Supportive or Protective Equipment (ICD-10-PCS; 2018-11-19)
PROC: F07Z9FZ Gait Training/Functional Ambulation Treatment using Assistive, Adaptive, Supportive or Protective Equipment (ICD-10-PCS; 2018-11-19)
PROC: F08Z0FZ Bathing/Showering Techniques Treatment using Assistive, Adaptive, Supportive or Protective Equipment (ICD-10-PCS; 2018-11-19)
PROC: F08Z2FZ Grooming/Personal Hygiene Treatment using Assistive, Adaptive, Supportive or Protective Equipment (ICD-10-PCS; 2018-11-19)
PROC: F08Z1FZ Dressing Techniques Treatment using Assistive, Adaptive, Supportive or Protective Equipment (ICD-10-PCS; 2018-11-19)
DX: I69.320 Aphasia following cerebral infarction (principal); I69.351 Hemiplegia and hemiparesis following cerebral infarction affecting right dominant side; N39.0 Urinary tract infection, site not specified; N17.9 Acute kidney failure, unspecified; I10 Essential (primary) hypertension; E03.9 Hypothyroidism, unspecified; I69.322 Dysarthria following cerebral infarction; I25.10 Atherosclerotic heart disease of native coronary artery without angina pectoris; F17.210 Nicotine dependence, cigarettes, uncomplicated; B96.20 Unspecified Escherichia coli [E. coli] as the cause of diseases classified elsewhere; Z79.82 Long term (current) use of aspirin; Z95.5 Presence of coronary angioplasty implant and graft; Z91.14 Patient's other noncompliance with medication regimen
CPT/HCPCS: 71045; 80048; 80053; 81001; 83735; 85025; 87070; 87081; 87086; 92507; 92523; 92610; 94640; 94664; 97110; 97112; 97116; 97163; 97167; 97530; 97535; J2060; J2270; J2543